=== PATIENT | female | born 1975 | race Two or more races ===

== ENCOUNTER 2016-05-24 13:54 | Emergency (ER) | payer MEDICAID ==
[~2016-05-24] VITALS: Ht 167.6 cm; Wt 72.0 kg
[~2016-05-24 13:54] MED LIST: ALPR1TAB2 PO; CONSTIPATION MED; LEVO137T2 PO; LINA290C PO; MECL25TA4 PO; MIDO2.5T PO; ONDA-39 PO; OXYC-229 PO; OXYC10TA6 PO; SERT100T PO; SERT100T5 PO; ZOLP10TA5 PO
[2016-05-24] MEDS ORDERED: SODIUM CHLORIDE FLUSH 10ML SYR IVF ONE (14:30)
[2016-05-24] MEDS ORDERED: SODIUM CHLORIDE 0.9% 1,000ML IVBOLUS ONE (14:30)
[2016-05-24 15:02] LABS: HEMOGLOBIN 12.2 g/dL (11.7-16.4)
[2016-05-24 15:11] LABS: BLOOD UREA NITROGEN 11 mg/dL (7-18)
[2016-05-24 15:21] VITALS: BP 129/77
[2016-05-24] MEDS ORDERED: OXYcodone/APAP 5/325MG TABLET PO ONE (15:30)
[2016-05-24] MEDS ORDERED: OXYcodone/APAP 5/325MG TABLET ONE (15:32)
== END 2016-05-24 16:22 | disposition home or self-care (01) ==
LOC: ED 14:07
DX: R56.9 Unspecified convulsions (principal); E03.9 Hypothyroidism, unspecified; Z90.49 Acquired absence of other specified parts of digestive tract
CPT/HCPCS: 36415; 70450; 80048; 82040; 85025; 85610; 85730; 93005; 96360; 99285; J7030

== ENCOUNTER 2016-09-16 20:36 | Emergency (ER) | payer MEDICAID ==
[~2016-09-16] VITALS: Ht 167.6 cm; Wt 76.4 kg
[2016-09-16] MEDS ORDERED: HYDROmorphone 1 MG/ML, 1ML ONE ×2 (21:22→22:05)
[2016-09-16] MEDS ORDERED: ONDANSETRON 2MG/ML, 2ML ONE (21:23)
[2016-09-16] MEDS ORDERED: ONDANSETRON 2MG/ML, 2ML IVPush ONE (21:30)
[2016-09-16] MEDS ORDERED: SODIUM CHLORIDE 0.9% 1,000ML IVBOLUS ONE (21:30)
[2016-09-16] MEDS ORDERED: SODIUM CHLORIDE FLUSH 10ML SYR IVF ONE (21:30)
[2016-09-16] MEDS: HYDROmorphone 1 MG/ML, 1ML IVPush PRN ×2 (21:37→22:30)
[2016-09-16 21:38] LABS: ASPARTATE AMINO TRANSFERASE 16 U/L (15-37); BLOOD UREA NITROGEN 12 mg/dL (7-18)
[2016-09-16 21:43] LABS: IS PT STATUS REG ER OR PRE ER? YES
[2016-09-16] MEDS ORDERED: OMNIPAQUE 350 MG/ML, 100ML BOTTLE ONE (23:52)
[2016-09-16 23:53] VITALS: BP 128/95
== END 2016-09-17 00:41 | disposition home or self-care (01) ==
LOC: ED 23:35
DX: E86.0 Dehydration (principal); M54.6 Pain in thoracic spine; R11.2 Nausea with vomiting, unspecified; E03.9 Hypothyroidism, unspecified; Z87.442 Personal history of urinary calculi; Z90.49 Acquired absence of other specified parts of digestive tract; Z87.891 Personal history of nicotine dependence; Z88.8 Allergy status to other drugs, medicaments and biological substances
CPT/HCPCS: 36415; 71010; 71275; 74176; 80053; 81001; 83690; 84484; 84703; 85025; 93005; 96374; 96375; 96376; 99285; J1170; J2405; J7030; Q9967

== ENCOUNTER 2016-10-10 22:29 | Emergency (ER) | payer MEDICAID ==
[~2016-10-10] VITALS: Ht 167.6 cm; Wt 77.7 kg
[~2016-10-10 22:29] MED LIST changes: -ONDA-39 PO; +ONDA4TAB12 PO; -OXYC-229 PO; +OXYC-307 PO
[2016-10-10] MEDS ORDERED: ALPR2TAB2 PO (23:19)
[2016-10-10] MEDS ORDERED: LEVO175T2 PO (23:19)
[2016-10-10] MEDS ORDERED: OXYC1TAB9 PO (23:19)
[2016-10-10] MEDS ORDERED: SODIUM CHLORIDE FLUSH 10ML SYR IVF ONE (23:30)
[2016-10-10] MEDS ORDERED: FAMOTIDINE 20 MG/2 ML IVP ONE (23:30)
[2016-10-10] MEDS ORDERED: ONDANSETRON 2MG/ML, 2ML IVPush ONE (23:30)
[2016-10-10] MEDS ORDERED: SODIUM CHLORIDE 0.9% 1,000ML IVBOLUS ONE (23:30)
[2016-10-10 23:48] LABS: HEMATOCRIT 35.2 % (34.6-47.8); HEMOGLOBIN 11.8 g/dL (11.7-16.4); WHITE BLOOD COUNT 5.9 x10^3/uL (3.4-10)
[2016-10-10 23:51] LABS: ASPARTATE AMINO TRANSFERASE 15 U/L (15-37); BLOOD UREA NITROGEN 10 mg/dL (7-18)
[2016-10-11] MEDS ORDERED: FAMOTIDINE 20 MG/2 ML ONE (00:16)
[2016-10-11] MEDS ORDERED: ONDANSETRON 2MG/ML, 2ML ONE (00:16)
[2016-10-11 01:17] VITALS: BP 116/85
== END 2016-10-11 01:18 | disposition home or self-care (01) ==
LOC: ED 23:28
DX: R10.84 Generalized abdominal pain (principal); R11.2 Nausea with vomiting, unspecified; E03.9 Hypothyroidism, unspecified; Z90.49 Acquired absence of other specified parts of digestive tract
CPT/HCPCS: 36415; 74020; 80053; 81001; 83690; 85025; 87086; 96361; 96374; 96375; 99285; J2405; J7030; S0028

== ENCOUNTER 2016-10-22 17:33 | Emergency (ER) | payer MEDICAID ==
[~2016-10-22] VITALS: Ht 167.6 cm; Wt 81.0 kg
[~2016-10-22 17:33] MED LIST changes: +ALPR2TAB2 PO; +LEVO175T2 PO; +OXYC1TAB9 PO
[2016-10-22] MEDS ORDERED: ONDANSETRON 2MG/ML, 2ML ONE (17:46)
[2016-10-22] MEDS ORDERED: SODIUM CHLORIDE 0.9% 1,000ML IVBOLUS ONE (18:00)
[2016-10-22] MEDS ORDERED: DIPHENHYDRAMINE 50 MG/ML, 1ML IVPush ONE (18:00)
[2016-10-22] MEDS ORDERED: METOCLOPRAMIDE 5 MG/ML, 2ML IVPush ONE (18:00)
[2016-10-22] MEDS ORDERED: morphine SULFATE 10 MG/ML, 1ML IVPush ONE (18:00)
[2016-10-22] MEDS ORDERED: ONDANSETRON 2MG/ML, 2ML IVPush ONE (18:00)
[2016-10-22] MEDS ORDERED: SODIUM CHLORIDE FLUSH 10ML SYR IVF ONE (18:00)
[2016-10-22] MEDS ORDERED: DIPHENHYDRAMINE 50 MG/ML, 1ML ONE (18:05)
[2016-10-22] MEDS ORDERED: METOCLOPRAMIDE 5 MG/ML, 2ML ONE (18:05)
[2016-10-22] MEDS ORDERED: MORPHINE SULFATE 4 MG/ML, 1ML ONE (18:05)
[2016-10-22 19:09] LABS: HEMATOCRIT 36.7 % (34.6-47.8); HEMOGLOBIN 12.7 g/dL (11.7-16.4); WHITE BLOOD COUNT 4.3 x10^3/uL (3.4-10)
[2016-10-22 19:23] LABS: BLOOD UREA NITROGEN 5 mg/dL (7-18)
[2016-10-22 19:24] LABS: ASPARTATE AMINO TRANSFERASE 64 U/L (15-37)
[2016-10-22 20:03] VITALS: BP 110/75
== END 2016-10-22 21:03 | disposition home or self-care (01) ==
LOC: ED 18:55
DX: R10.84 Generalized abdominal pain (principal); R11.2 Nausea with vomiting, unspecified; R53.1 Weakness
CPT/HCPCS: 36415; 74176; 80053; 81001; 83690; 84703; 85025; 87086; 96361; 96374; 96375; 99285; J1200; J2270; J2765; J7030; 87147

== ENCOUNTER 2016-10-23 12:47 | Inpatient (IN) | payer MEDICAID ==
[~2016-10-23] VITALS: Ht 167.6 cm; Wt 81.3 kg
[2016-10-23] MEDS ORDERED: SODIUM CHLORIDE 0.9% 1,000 ML IV ONE (13:36)
[2016-10-23] MEDS ORDERED: ACETAMINOPHEN 500 MG TABLET ONE (13:40)
[2016-10-23] MEDS ORDERED: HYDROmorphone 1 MG/ML, 1ML ONE ×3 (13:47→17:35)
[2016-10-23] MEDS ORDERED: ONDANSETRON 2MG/ML, 2ML ONE ×2 (13:47→15:22)
[2016-10-23] MEDS: HYDROmorphone 1 MG/ML, 1ML IVPush PRN ×2 (13:49→15:13)
[2016-10-23] MEDS ORDERED: ACETAMINOPHEN 500 MG TABLET PO ONE (14:00)
[2016-10-23] MEDS ORDERED: SODIUM CHLORIDE 0.9% 1,000ML IVBOLUS ONE (14:00)
[2016-10-23] MEDS ORDERED: ACETAMINOPHEN 325 MG TABLET PO ONE (14:00)
[2016-10-23] MEDS ORDERED: SODIUM CHLORIDE FLUSH 10ML SYR IVF ONE (14:00)
[2016-10-23] MEDS ORDERED: ONDANSETRON 2MG/ML, 2ML IVPush ONE (14:00)
[2016-10-23 14:15] LABS: HEMATOCRIT 37.1 % (34.6-47.8); WHITE BLOOD COUNT 9.6 x10^3/uL (3.4-10)
[2016-10-23 14:25] LABS: BLOOD UREA NITROGEN 6 mg/dL (7-18)
[2016-10-23] MEDS ORDERED: IBUPROFEN 200 MG TABLET ONE (14:31)
[2016-10-23] MEDS ORDERED: IBUPROFEN 200 MG TABLET PO ONE (15:00)
[2016-10-23] MEDS ORDERED: MORPHINE SULFATE 4 MG/ML, 1ML ONE (15:22)
[2016-10-23] MEDS ORDERED: LEVOFLOXACIN/PMX 750MG/150ML 150 ML ONE (15:22)
[2016-10-23] MEDS ORDERED: LEVOFLOXACIN/PMX 750MG/150ML 150 ML IVPB ONE (15:30)
[2016-10-23 15:33] LABS: ASPARTATE AMINO TRANSFERASE 46 U/L (15-37)
[2016-10-23] MEDS ORDERED: SODIUM CHLORIDE 0.9%, 500ML IVBOLUS ONE (17:30)
[2016-10-23] MEDS ORDERED: LEVOTHYROXINE 100 MCG INJ IVPush ONE (17:30)
[2016-10-23] MEDS ORDERED: BISACODYL 10 MG SUPP PR PRN (17:30)
[2016-10-23] MEDS ORDERED: GUAIFENESIN/DM 200-20MG, 10ML UDC PO PRN (17:30)
[2016-10-23] MEDS ORDERED: DOCUSATE 100 MG CAPSULE PO PRN (17:30)
[2016-10-23] MEDS ORDERED: ACETAMINOPHEN 325 MG TABLET PO PRN (17:30)
[2016-10-23] MEDS ORDERED: PROMETHAZINE 25 MG/ML, 1ML IM PRN (17:30)
[2016-10-23] MEDS ORDERED: POLYETHYLENE GLYCOL 17 GM PACKET PO PRN (17:30)
[2016-10-23] MEDS ORDERED: METOCLOPRAMIDE 5 MG/ML, 2ML IVPush PRN (17:30)
[2016-10-23 17:51] VITALS: BP 121/74
[2016-10-23 18:02] LABS: IS PT STATUS REG ER OR PRE ER? NO
[2016-10-23] MEDS: SODIUM CHLORIDE 0.9% 1,000 ML IV SCH (19:48)
[2016-10-23] MEDS: CEFTRIAXONE PMX 1GM/50ML 50 ML IV SCH (19:48)
[2016-10-23] MEDS: LACTOBACILLUS CHEW TABLET PO SCH (19:49)
[2016-10-23] MEDS: OXYcodone/APAP 10/325MG TABLET PO PRN (19:49)
[2016-10-23] MEDS: ONDANSETRON 2MG/ML, 2ML IVPush PRN (19:50)
[2016-10-23] MEDS: ENOXAPARIN 40 MG/0.4 ML SQ SCH (19:52)
[2016-10-23] MEDS: DOXYCYCLINE 100 MG in DEXTROSE 5% 250 ML IV SCH (20:55)
[2016-10-23] MEDS: ALPRazolam 1MG TABLET PO PRN (21:56)
[2016-10-24 00:01] LABS: IS PT STATUS REG ER OR PRE ER? NO
[2016-10-24 00:45] VITALS: BP 116/80
[2016-10-24 02:14] VITALS: BP 107/73
[2016-10-24] MEDS: ONDANSETRON 2MG/ML, 2ML IVPush PRN (02:56)
[2016-10-24] MEDS: SODIUM CHLORIDE 0.9% 1,000 ML IV SCH ×3 (05:00→22:40)
[2016-10-24] MEDS: LEVOTHYROXINE 175 MCG TABLET PO SCH (05:00)
[2016-10-24 05:57] LABS: HEMATOCRIT 29.3 % (34.6-47.8); WHITE BLOOD COUNT 10.1 x10^3/uL (3.4-10)
[2016-10-24 06:48] LABS: ASPARTATE AMINO TRANSFERASE 82 U/L (15-37); BLOOD UREA NITROGEN 6 mg/dL (7-18)
[2016-10-24 06:58] VITALS: BP 115/82
[2016-10-24] MEDS: TEMPLATE NON-FORMULARY MED. (Linaclotide** (Linzess**) 290 MCG) PO SCH (09:00)
[2016-10-24] MEDS: SENNA/DOCUSATE TABLET PO SCH (09:10)
[2016-10-24] MEDS: OXYcodone/APAP 10/325MG TABLET PO PRN ×2 (09:10→18:00)
[2016-10-24] MEDS: LACTOBACILLUS CHEW TABLET PO SCH ×3 (09:10→20:25)
[2016-10-24] MEDS: DOXYCYCLINE 100 MG in DEXTROSE 5% 250 ML IV SCH ×2 (09:11→20:25)
[2016-10-24 13:15] VITALS: BP 113/83
[2016-10-24] MEDS: ALPRazolam 1MG TABLET PO PRN (15:18)
[2016-10-24] MEDS ORDERED: LEVOTHYROXINE 100 MCG INJ IVPush ONE (16:30)
[2016-10-24] MEDS: CEFTRIAXONE PMX 1GM/50ML 50 ML IV SCH (19:33)
[2016-10-24] MEDS: ENOXAPARIN 40 MG/0.4 ML SQ SCH (20:25)
[2016-10-24 21:01] VITALS: BP 121/79
[2016-10-25 01:05] VITALS: BP 126/87
[2016-10-25] MEDS: SODIUM CHLORIDE 0.9% 1,000 ML IV SCH ×3 (05:20→20:21)
[2016-10-25 05:50] LABS: HEMATOCRIT 32.4 % (34.6-47.8); WHITE BLOOD COUNT 8.2 x10^3/uL (3.4-10)
[2016-10-25] MEDS: LEVOTHYROXINE 175 MCG TABLET PO SCH (05:56)
[2016-10-25 05:59] LABS: BLOOD UREA NITROGEN 2 mg/dL (7-18)
[2016-10-25 06:55] VITALS: BP 123/73
[2016-10-25] MEDS: TEMPLATE NON-FORMULARY MED. (Linaclotide** (Linzess**) 290 MCG) PO SCH (08:56)
[2016-10-25] MEDS: LACTOBACILLUS CHEW TABLET PO SCH ×3 (08:56→20:20)
[2016-10-25] MEDS: OXYcodone/APAP 10/325MG TABLET PO PRN ×2 (08:56→20:20)
[2016-10-25] MEDS: SENNA/DOCUSATE TABLET PO SCH (08:56)
[2016-10-25] MEDS: DOXYCYCLINE 100 MG in DEXTROSE 5% 250 ML IV SCH ×2 (09:12→22:12)
[2016-10-25 13:00] VITALS: BP_SYST 108; BP_SYST 120; BP_DIAS 67; BP_DIAS 73
[2016-10-25] MEDS: ALPRazolam 1MG TABLET PO PRN (15:00)
[2016-10-25] MEDS ORDERED: LEVOTHYROXINE 100 MCG INJ IVPush ONE (18:00)
[2016-10-25 19:21] VITALS: BP 114/78
[2016-10-25] MEDS: ENOXAPARIN 40 MG/0.4 ML SQ SCH (20:20)
[2016-10-25] MEDS: CEFTRIAXONE PMX 1GM/50ML 50 ML IV SCH (20:21)
[2016-10-26] MEDS ORDERED: CALCIUM CARBONATE 500 MG TAB.CHEW PO PRN (01:00)
[2016-10-26 01:16] VITALS: BP 132/95
[2016-10-26] MEDS: SODIUM CHLORIDE 0.9% 1,000 ML IV SCH ×2 (02:09→10:21)
[2016-10-26 05:26] LABS: HEMATOCRIT 27.9 % (34.6-47.8); HEMOGLOBIN 9.7 g/dL (11.7-16.4); WHITE BLOOD COUNT 4.7 x10^3/uL (3.4-10)
[2016-10-26] MEDS: LEVOTHYROXINE 175 MCG TABLET PO SCH (05:56)
[2016-10-26 06:11] LABS: BLOOD UREA NITROGEN 3 mg/dL (7-18)
[2016-10-26 06:54] VITALS: BP 119/75
[2016-10-26] MEDS: TEMPLATE NON-FORMULARY MED. (Linaclotide** (Linzess**) 290 MCG) PO SCH (09:00)
[2016-10-26] MEDS: DOXYCYCLINE 100 MG in DEXTROSE 5% 250 ML IV SCH (10:21)
[2016-10-26] MEDS: LACTOBACILLUS CHEW TABLET PO SCH ×2 (10:21→16:36)
[2016-10-26] MEDS: SENNA/DOCUSATE TABLET PO SCH (10:22)
[2016-10-26 13:48] VITALS: BP 117/81
[2016-10-26] MEDS: OXYcodone/APAP 10/325MG TABLET PO PRN (14:19)
[2016-10-26] MEDS ORDERED: LEVO100T PO (16:22)
[2016-10-26] MEDS ORDERED: ACID1TAB7 PO (16:22)
[2016-10-26] MEDS ORDERED: DOXY100C2 PO (16:22)
[2016-10-26] MEDS ORDERED: CEFD300C37 PO (16:22)
[2016-10-27] MEDS ORDERED: OXYC1TAB9 PO (15:06)
[2016-10-29] MEDS ORDERED: ALBU90AE INH (17:29)
== END 2016-10-26 17:21 | disposition home or self-care (01) | DRG 871 ==
LOC: ED 14:09 → EDIP 15:48 → 3NE 17:48 → 4WST 10-24 00:38
PROVIDERS: ADMIT Hospitalist; ATTEND Internal Medicine
DX: A41.9 Sepsis, unspecified organism (principal); J18.9 Pneumonia, unspecified organism; F11.20 Opioid dependence, uncomplicated; E03.9 Hypothyroidism, unspecified; E87.6 Hypokalemia; G40.909 Epilepsy, unspecified, not intractable, without status epilepticus; G89.29 Other chronic pain; K58.0 Irritable bowel syndrome with diarrhea; K59.09 Other constipation; R65.20 Severe sepsis without septic shock; Z87.442 Personal history of urinary calculi; Z90.49 Acquired absence of other specified parts of digestive tract; Z98.51 Tubal ligation status
CPT/HCPCS: 36415; 71010; 74177; 80048; 80053; 80061; 81003; 83605; 84145; 84439; 84443; 84484; 84703; 85025; 87040; 87205; 89055; 93005; 93306; 96361; 96365; 96366; 96375; 96376; J0696; J1170; J1650; J1956; J2405; J7060; J7030

== ENCOUNTER 2016-11-03 14:00 | Emergency (ER) | payer MEDICAID ==
[~2016-11-03] VITALS: Ht 167.6 cm; Wt 77.0 kg
[~2016-11-03 14:00] MED LIST changes: +ACID1TAB7 PO; +ALBU90AE INH; +CEFD300C37 PO; +DOXY100C2 PO; +LEVO100T PO
[2016-11-03 15:06] LABS: BLOOD UREA NITROGEN 9 mg/dL (7-18)
[2016-11-03 15:08] LABS: HEMATOCRIT 35.3 % (34.6-47.8); HEMOGLOBIN 12.1 g/dL (11.7-16.4); WHITE BLOOD COUNT 5.8 x10^3/uL (3.4-10)
[2016-11-03 15:53] VITALS: BP 123/83
[2016-11-03] MEDS ORDERED: BENZONATATE 100 MG CAPSULE PO SCH (16:00)
== END 2016-11-03 16:44 | disposition home or self-care (01) ==
LOC: ED 15:02
DX: R06.00 Dyspnea, unspecified (principal); E03.9 Hypothyroidism, unspecified; Z90.49 Acquired absence of other specified parts of digestive tract; Z88.8 Allergy status to other drugs, medicaments and biological substances
CPT/HCPCS: 36415; 71010; 80048; 82040; 84443; 85025; 93005; 99285

== ENCOUNTER 2016-11-21 11:16 | Emergency (ER) | payer MEDICAID ==
[~2016-11-21] VITALS: Ht 167.6 cm; Wt 79.5 kg
[2016-11-21] MEDS ORDERED: SODIUM CHLORIDE FLUSH 10ML SYR IVF ONE (12:00)
[2016-11-21] MEDS ORDERED: SODIUM CHLORIDE 0.9% 1,000ML IVBOLUS ONE ×2 (12:00→14:30)
[2016-11-21 12:18] LABS: HEMATOCRIT 36.4 % (34.6-47.8); HEMOGLOBIN 12.4 g/dL (11.7-16.4); WHITE BLOOD COUNT 8.8 x10^3/uL (3.4-10)
[2016-11-21 12:30] LABS: BLOOD UREA NITROGEN 6 mg/dL (7-18)
[2016-11-21 14:11] LABS: ASPARTATE AMINO TRANSFERASE 245 U/L (15-37)
[2016-11-21] MEDS ORDERED: OMNIPAQUE 350 MG/ML, 100ML BOTTLE ONE (14:14)
[2016-11-21 14:15] LABS: ACETAMINOPHEN < 2 mcg/mL (10-30)
[2016-11-21 15:13] LABS: DAU SCREEN DISCLAIMER
[2016-11-21 15:27] VITALS: BP 136/82
[2016-11-21] MEDS ORDERED: CEFTRIAXONE PMX 1GM/50ML 50 ML ONE (16:15)
[2016-11-21] MEDS ORDERED: ONDANSETRON ODT 4 MG PO PRN (16:30)
[2016-11-21] MEDS ORDERED: ENOXAPARIN 30 MG/0.3 ML SQ SCH (16:30)
[2016-11-21] MEDS ORDERED: CEFTRIAXONE PMX 1GM/50ML 50 ML IVPB ONE (16:30)
[2016-11-21] MEDS ORDERED: SODIUM CHLORIDE 0.9% 1,000 ML IV SCH (16:30)
[2016-11-21] MEDS ORDERED: ONDANSETRON 2MG/ML, 2ML IVPush PRN (16:30)
[2016-11-21] MEDS ORDERED: SODIUM CHLORIDE 0.9% 1,000 ML IV ONE (16:32)
[2016-11-21] MEDS ORDERED: SODIUM CHLORIDE FLUSH 10ML SYR IVF PRN (17:00)
[2016-11-21] MEDS ORDERED: ALPRazolam 1MG TABLET PO PRN (17:00)
[2016-11-21] MEDS ORDERED: POTASSIUM CHLORIDE 20 MEQ TAB.ER.PRT PO SCH (17:00)
[2016-11-21] MEDS ORDERED: LACTOBACILLUS CHEW TABLET PO SCH (21:00)
[2016-11-22] MEDS ORDERED: LEVOTHYROXINE 100 MCG TABLET PO SCH (06:00)
[2016-11-22] MEDS ORDERED: TEMPLATE NON-FORMULARY MED. (Linaclotide** (Linzess**) 290 MCG) HOMEMEDPO SCH (09:00)
== END 2016-11-21 17:22 | disposition left against medical advice (07) ==
LOC: ED 14:31 → EDIP 16:32 → UNDOADMIN 16:32 → UNDODISIN 16:33 → ED 17:22
DX: R00.0 Tachycardia, unspecified (principal); R50.9 Fever, unspecified; E03.9 Hypothyroidism, unspecified
CPT/HCPCS: 36415; 71010; 71275; 76700; 80048; 80076; 80307; 80329; 81001; 82040; 83605; 84145; 84439; 84443; 85025; 87040; 93005; 96360; 96361; 99285; J7030; Q9967; G0479; G0480

== ENCOUNTER 2017-01-19 17:18 | Emergency (ER) | payer MEDICAID ==
[~2017-01-19] VITALS: Ht 162.6 cm; Wt 76.6 kg
[2017-01-19] MEDS ORDERED: DIVA500T2 PO (17:43)
[2017-01-19] MEDS ORDERED: OXYC15TA PO (17:43)
[2017-01-19] MEDS ORDERED: SERT25TA PO (17:43)
[2017-01-19 20:13] VITALS: BP 106/63
== END 2017-01-19 20:17 | disposition home or self-care (01) ==
LOC: ED 17:41
DX: S09.90XA Unspecified injury of head, initial encounter (principal); E03.9 Hypothyroidism, unspecified; W19.XXXA Unspecified fall, initial encounter; Y93.89 Activity, other specified; Y92.89 Other specified places as the place of occurrence of the external cause; Y99.8 Other external cause status
CPT/HCPCS: 70450; 93005; 99284

== ENCOUNTER 2017-01-21 23:48 | Emergency (ER) | payer MEDICAID ==
[~2017-01-21] VITALS: Ht 162.6 cm; Wt 78.3 kg
[~2017-01-21 23:48] MED LIST changes: +DIVA500T2 PO; +OXYC15TA PO; +SERT25TA PO
[2017-01-22] MEDS ORDERED: SODIUM CHLORIDE FLUSH 10ML SYR IVF ONE (00:30)
[2017-01-22] MEDS ORDERED: SODIUM CHLORIDE 0.9% 1,000ML IVBOLUS ONE (00:30)
[2017-01-22 01:01] LABS: BLOOD UREA NITROGEN 16 mg/dL (7-18)
[2017-01-22] MEDS ORDERED: POTASSIUM CHLORIDE 20 MEQ TAB.ER.PRT ONE (01:11)
[2017-01-22] MEDS ORDERED: POTASSIUM CHLORIDE 20 MEQ TAB.ER.PRT PO ONE (01:30)
[2017-01-22] MEDS ORDERED: POTASSIUM CHLORIDE 40 MEQ in SODIUM CHLORIDE 0.9% 500 ML IV ONE (01:30)
[2017-01-22 03:41] LABS: BLOOD UREA NITROGEN 14 mg/dL (7-18)
[2017-01-22 05:02] VITALS: BP 109/74
== END 2017-01-22 05:13 | disposition home or self-care (01) ==
LOC: ED 23:59
DX: E03.9 Hypothyroidism, unspecified (principal); G89.29 Other chronic pain; M54.9 Dorsalgia, unspecified; Z90.49 Acquired absence of other specified parts of digestive tract; R53.1 Weakness; E87.6 Hypokalemia
CPT/HCPCS: 36415; 80048; 82040; 84439; 84443; 93005; 96360; 99285; J7030

== ENCOUNTER 2017-02-14 13:45 | Emergency (ER) | payer MEDICAID ==
[~2017-02-14] VITALS: Ht 162.6 cm; Wt 74.7 kg
[2017-02-14 14:49] LABS: BASOPHILS # (AUTO) 0.06 x10^3/uL (0-0.1); BASOPHILS % (AUTO) 1 % (0-1); EOSINOPHILS # (AUTO) 0.51 x10^3/uL (0-0.4); EOSINOPHILS % (AUTO) 7 % (1-7); LYMPHOCYTES # (AUTO) 2.14 x10^3/uL (1-3.4); LYMPHOCYTES % (AUTO) 29 % (22-44); MD NO; MEAN CORPUSCULAR HEMOGLOBIN 30.2 pg (27.0-34.8); MEAN CORPUSCULAR VOLUME 88.7 fL (80-100); MEAN PLATELET VOLUME 7.6 fL (7.4-10.4); MONOCYTES # (AUTO) 0.39 x10^3/uL (0.2-0.8); MONOCYTES % (AUTO) 5 % (2-9); NEUTROPHILS # (AUTO) 4.19 x10^3/uL (1.8-6.8); NEUTROPHILS % (AUTO) 58 % (42-75); PLATELET COUNT 426 x10^3/uL (130-400); RED BLOOD COUNT 4.63 x10^6/uL (3.82-5.3); RED CELL DISTRIBUTION WIDTH 16.7 % (9.6-15.2)
[2017-02-14] MEDS ORDERED: LEVO137T3 PO (14:57)
[2017-02-14 15:01] LABS: ALBUMIN 4.2 g/dL (3.4-5.0); ANION GAP 6 mmol/L (5-15); CHLORIDE 100 mmol/L (98-107); CREATININE 1.12 mg/dL (0.55-1.02)
[2017-02-14 15:05] LABS: FREE T4 (FREE THYROXINE) 0.95 ng/dL (0.76-1.46); TROPONIN I < 0.015 ng/mL (0.000-0.045)
[2017-02-14 15:31] LABS: HCG UR SG 1.022 (1.003-1.030); MICROSCOPIC NOT IND
[2017-02-14 15:37] LABS: CULTURE INDICATED? NO
[2017-02-14] MEDS ORDERED: METOPROLOL TARTRATE 50 MG TABLET PO ONE (16:16)
[2017-02-14] MEDS ORDERED: METOPROLOL TARTRATE 50 MG TABLET ONE (16:29)
[2017-02-14 16:41] VITALS: BP 106/70
== END 2017-02-14 17:05 | disposition home or self-care (01) ==
LOC: ED 14:47
DX: R00.2 Palpitations (principal); E03.9 Hypothyroidism, unspecified; G89.29 Other chronic pain
CPT/HCPCS: 36415; 71010; 80048; 81003; 81025; 82040; 84439; 84443; 84484; 85025; 93005; 99285

== ENCOUNTER 2017-02-16 10:17 | Emergency (ER) | payer MEDICAID ==
[~2017-02-16] VITALS: Ht 162.6 cm; Wt 72.1 kg
[~2017-02-16 10:17] MED LIST changes: +LEVO137T3 PO
[2017-02-16] MEDS ORDERED: NALOXONE 1 MG/ML, 2ML ONE (10:28)
[2017-02-16] MEDS ORDERED: SODIUM CHLORIDE 0.9% 1,000ML IVBOLUS ONE (10:30)
[2017-02-16] MEDS ORDERED: NALOXONE 1 MG/ML, 2ML IVPush ONE (10:30)
[2017-02-16] MEDS ORDERED: SODIUM CHLORIDE 0.9% 1,000 ML IV ONE (10:30)
[2017-02-16] MEDS ORDERED: NALOXONE 0.4 MG/ML, 1ML IVPush PRN (10:30)
[2017-02-16 11:12] LABS: MICROSCOPIC NOT IND
[2017-02-16 11:16] LABS: CULTURE INDICATED? NO
[2017-02-16 11:41] LABS: BASOPHILS # (AUTO) 0.06 x10^3/uL (0-0.1); BASOPHILS % (AUTO) 1 % (0-1); EOSINOPHILS # (AUTO) 0.33 x10^3/uL (0-0.4); EOSINOPHILS % (AUTO) 6 % (1-7); LYMPHOCYTES % (AUTO) 31 % (22-44); MD NO; MEAN CORPUSCULAR HEMOGLOBIN 30.2 pg (27.0-34.8); MEAN CORPUSCULAR HGB CONC 33.7 g/dL (32.4-35.8); MEAN CORPUSCULAR VOLUME 89.6 fL (80-100); MEAN PLATELET VOLUME 7.7 fL (7.4-10.4); MONOCYTES # (AUTO) 0.42 x10^3/uL (0.2-0.8); MONOCYTES % (AUTO) 8 % (2-9); NEUTROPHILS % (AUTO) 54 % (42-75); PLATELET COUNT 326 x10^3/uL (130-400); RED CELL DISTRIBUTION WIDTH 16.8 % (9.6-15.2)
[2017-02-16 11:51] LABS: ALBUMIN 3.5 g/dL (3.4-5.0); ANION GAP 8 mmol/L (5-15); CALCIUM 7.7 mg/dL (8.5-10.1); CHLORIDE 104 mmol/L (98-107); CREATININE 0.88 mg/dL (0.55-1.02)
[2017-02-16 12:46] VITALS: BP 114/65
[2017-02-28] MEDS ORDERED: METO25TA35 PO (23:07)
== END 2017-02-16 14:13 | disposition home or self-care (01) ==
LOC: ED 13:25
DX: T40.2X1A Poisoning by other opioids, accidental (unintentional), initial encounter (principal); R41.0 Disorientation, unspecified; R40.1 Stupor; R33.9 Retention of urine, unspecified; G89.29 Other chronic pain; E03.9 Hypothyroidism, unspecified; Y92.89 Other specified places as the place of occurrence of the external cause; Z91.048 Other nonmedicinal substance allergy status
CPT/HCPCS: 36415; 51702; 71010; 80048; 81003; 82040; 85025; 93005; 96361; 96374; 99285; J2310; J7030

== ENCOUNTER 2017-03-17 17:39 | Emergency (ER) | payer MEDICAID ==
[~2017-03-17] VITALS: Ht 162.6 cm; Wt 75.9 kg
[~2017-03-17 17:39] MED LIST changes: +METO25TA35 PO; -SERT100T PO; +SERT20OR PO
[2017-03-17 18:33] LABS: RAPID INFLUENZA A Negative (Negative); RAPID INFLUENZA B Negative (Negative)
[2017-03-17] MEDS ORDERED: KETOROLAC 30 MG/1 ML ONE (18:58)
[2017-03-17] MEDS ORDERED: SODIUM CHLORIDE 0.9% 1,000ML IV ONE (19:00)
[2017-03-17] MEDS ORDERED: KETOROLAC 30 MG/1 ML IVPush ONE (19:00)
[2017-03-17 19:28] LABS: ALANINE AMINOTRANSFERASE 12 U/L (12-78); ALBUMIN 3.9 g/dL (3.4-5.0); ANION GAP 8 mmol/L (5-15); CALCIUM 8.5 mg/dL (8.5-10.1); CHLORIDE 110 mmol/L (98-107); CREATININE 0.75 mg/dL (0.55-1.02)
[2017-03-17 19:30] LABS: ALKALINE PHOSPHATASE 79 U/L (45-117); BILIRUBIN,TOTAL 0.6 mg/dL (0.2-1.0); TOTAL PROTEIN 8.1 g/dL (6.4-8.2)
[2017-03-17] MEDS ORDERED: DIPHENHYDRAMINE 50 MG/ML, 1ML ONE (19:39)
[2017-03-17 19:48] LABS: MEAN CORPUSCULAR HEMOGLOBIN 29.7 pg (27.0-34.8); MEAN CORPUSCULAR HGB CONC 33.2 g/dL (32.4-35.8); MEAN CORPUSCULAR VOLUME 89.5 fL (80-100); MEAN PLATELET VOLUME 8.3 fL (7.4-10.4); PLATELET COUNT 342 x10^3/uL (130-400); RED BLOOD COUNT 4.06 x10^6/uL (3.82-5.3); RED CELL DISTRIBUTION WIDTH 19.1 % (9.6-15.2)
[2017-03-17 19:55] LABS: HEMOGRAM NOTE RECHECKED
[2017-03-17] MEDS ORDERED: DIPHENHYDRAMINE 50 MG/ML, 1ML IVPush ONE (20:00)
[2017-03-17 20:23] LABS: BASOPHILS # (AUTO) 0.02 x10^3/uL (0-0.1); BASOPHILS % (AUTO) 0 % (0-1); EOSINOPHILS # (AUTO) 0.05 x10^3/uL (0-0.4); EOSINOPHILS % (AUTO) 1 % (1-7); LYMPHOCYTES % (AUTO) 26 % (22-44); MD SCAN; MONOCYTES # (AUTO) 0.37 x10^3/uL (0.2-0.8); MONOCYTES % (AUTO) 5 % (2-9); NEUTROPHILS # (AUTO) 4.65 x10^3/uL (1.8-6.8); NEUTROPHILS % (AUTO) 68 % (42-75)
[2017-03-17 20:33] VITALS: BP 124/89
== END 2017-03-17 20:41 | disposition home or self-care (01) ==
LOC: ED 18:56
DX: B34.9 Viral infection, unspecified (principal); E03.9 Hypothyroidism, unspecified; Z90.49 Acquired absence of other specified parts of digestive tract
CPT/HCPCS: 36415; 80053; 85025; 87400; 96361; 96374; 96375; 99285; J1200; J1885; J7030

== ENCOUNTER 2017-04-16 16:03 | Emergency (ER) | payer MEDICAID ==
[~2017-04-16] VITALS: Ht 162.6 cm; Wt 75.5 kg
[~2017-04-16 16:03] MED LIST changes: +SERT100T PO; -SERT20OR PO
[2017-04-16 16:13] VITALS: BP 120/69
[2017-04-16] MEDS ORDERED: METOCLOPRAMIDE 5 MG/ML, 2ML IM SCH (16:30)
[2017-04-16] MEDS ORDERED: DIPHENHYDRAMINE 50 MG/ML, 1ML IM ONE (16:30)
== END 2017-04-16 19:24 | disposition left against medical advice (07) ==
LOC: ED 19:20
DX: G43.909 Migraine, unspecified, not intractable, without status migrainosus (principal)
CPT/HCPCS: 99281

== ENCOUNTER 2017-05-26 18:01 | Emergency (ER) | payer MEDICAID ==
[~2017-05-26] VITALS: Ht 167.6 cm; Wt 78.0 kg
[2017-05-26 18:03] VITALS: BP 108/73
[2017-05-26] MEDS ORDERED: FIORICET PO (18:31)
[2017-05-26] MEDS ORDERED: HYOS0.1268 PO (18:31)
[2017-05-26] MEDS ORDERED: TRAZ100T15 PO (18:31)
[2017-05-26] MEDS ORDERED: METH4TAB7 PO (18:31)
[2017-05-26] MEDS ORDERED: MIDO5TAB PO (18:31)
[2017-05-26] MEDS ORDERED: LEVE500T8 PO (18:31)
[2017-05-26] MEDS ORDERED: ATOR10TA PO (18:31)
[2017-05-26] MEDS ORDERED: PROP20TA PO (18:31)
[2017-05-26] MEDS ORDERED: PHEN37.53 PO (18:31)
[2017-05-26] MEDS ORDERED: OXYC10TA6 PO (18:31)
[2017-05-26] MEDS ORDERED: OXYC20TA2 PO (18:31)
[2017-05-26] MEDS ORDERED: SERT100T5 PO (18:31)
[2017-05-26] MEDS ORDERED: ZIPR20CA3 PO (18:31)
[2017-05-26] MEDS ORDERED: ONDA4TAB13 SL (18:31)
[2017-05-26] MEDS ORDERED: SUCR1TAB PO (18:31)
== END 2017-05-26 19:24 | disposition home or self-care (01) ==
LOC: ED 19:00
DX: M79.661 Pain in right lower leg (principal); M79.89 Other specified soft tissue disorders; E03.9 Hypothyroidism, unspecified; M25.561 Pain in right knee
CPT/HCPCS: 99284

== ENCOUNTER 2017-07-06 17:56 | Emergency (ER) | payer MEDICAID ==
[~2017-07-06] VITALS: Ht 167.6 cm; Wt 75.4 kg
[~2017-07-06 17:56] MED LIST changes: +ALBU1.25 NEB; +ATOR10TA PO; +FIORICET PO; +FLUT16SP IH; +HYOS0.1268 PO; +LEVE500T8 PO; +METH4TAB7 PO; +MIDO5TAB PO; +ONDA4TAB13 SL; +OXYC20TA2 PO; +PHEN37.53 PO; +PROP20TA PO; +SUCR1TAB PO; +SUMA50TA4 PO; +TRAZ100T15 PO; +ZIPR20CA3 PO
[2017-07-06] MEDS ORDERED: SUMA20SP2 NAS (18:30)
[2017-07-06] MEDS ORDERED: KETOROLAC 30 MG/1 ML IVPush ONE (19:00)
[2017-07-06] MEDS ORDERED: PROMETHAZINE 25 MG/ML, 1ML IM ONE (19:00)
[2017-07-06] MEDS ORDERED: DIPHENHYDRAMINE 50 MG/ML, 1ML IVPush ONE (19:00)
[2017-07-06] MEDS ORDERED: SODIUM CHLORIDE 0.9% 1,000ML IVBOLUS ONE (19:00)
[2017-07-06] MEDS ORDERED: SODIUM CHLORIDE FLUSH 10ML SYR IVF ONE (19:00)
[2017-07-06] MEDS ORDERED: DIPHENHYDRAMINE 50 MG/ML, 1ML ONE (19:04)
[2017-07-06] MEDS ORDERED: PROMETHAZINE 25 MG/ML, 1ML ONE (19:04)
[2017-07-06] MEDS ORDERED: KETOROLAC 30 MG/1 ML ONE (19:04)
[2017-07-06 19:38] VITALS: BP 107/70
== END 2017-07-06 19:59 | disposition home or self-care (01) ==
LOC: ED 18:40
DX: G43.919 Migraine, unspecified, intractable, without status migrainosus (principal)
CPT/HCPCS: 96372; 96374; 96375; 99284; J1200; J1885; J2550; J7030

== ENCOUNTER 2017-07-09 16:28 | Emergency (ER) | payer MEDICAID ==
[~2017-07-09] VITALS: Ht 167.6 cm; Wt 77.5 kg
[~2017-07-09 16:28] MED LIST changes: +SUMA20SP2 NAS
[2017-07-09] MEDS ORDERED: ONDANSETRON ODT 4 MG PO ONE (17:00)
[2017-07-09] MEDS ORDERED: SODIUM CHLORIDE FLUSH 10ML SYR IVF ONE (17:00)
[2017-07-09 17:02] LABS: BASOPHILS # (AUTO) 0.06 x10^3/uL (0-0.1); BASOPHILS % (AUTO) 1 % (0-1); EOSINOPHILS # (AUTO) 0.25 x10^3/uL (0-0.4); EOSINOPHILS % (AUTO) 4 % (1-7); LYMPHOCYTES # (AUTO) 2.75 x10^3/uL (1-3.4); LYMPHOCYTES % (AUTO) 44 % (22-44); MD NO; MEAN CORPUSCULAR HEMOGLOBIN 31.7 pg (27.0-34.8); MEAN CORPUSCULAR HGB CONC 34.4 g/dL (32.4-35.8); MEAN PLATELET VOLUME 7.9 fL (7.4-10.4); MONOCYTES # (AUTO) 0.45 x10^3/uL (0.2-0.8); MONOCYTES % (AUTO) 7 % (2-9); NEUTROPHILS # (AUTO) 2.74 x10^3/uL (1.8-6.8); NEUTROPHILS % (AUTO) 44 % (42-75); PLATELET COUNT 355 x10^3/uL (130-400); RED BLOOD COUNT 3.97 x10^6/uL (3.82-5.3); RED CELL DISTRIBUTION WIDTH 15.7 % (9.6-15.2)
[2017-07-09 17:12] LABS: ALANINE AMINOTRANSFERASE 22 U/L (12-78); ALBUMIN 3.6 g/dL (3.4-5.0); ANION GAP 6 mmol/L (5-15); CALCIUM 8.5 mg/dL (8.5-10.1); CHLORIDE 111 mmol/L (98-107); CREATININE 0.87 mg/dL (0.55-1.02)
[2017-07-09 17:14] LABS: ALKALINE PHOSPHATASE 102 U/L (45-117); BILIRUBIN,TOTAL 0.2 mg/dL (0.2-1.0); TOTAL PROTEIN 7.7 g/dL (6.4-8.2)
[2017-07-09] MEDS ORDERED: MORPHINE SULFATE 4 MG/ML, 1ML ONE ×2 (17:50→19:49)
[2017-07-09] MEDS ORDERED: ONDANSETRON ODT 4 MG ONE (17:50)
[2017-07-09] MEDS: MORPHINE SULFATE 4 MG/ML, 1ML IVPush PRN ×2 (17:56→19:51)
[2017-07-09] MEDS ORDERED: SODIUM CHLORIDE 0.9% 1,000ML IVBOLUS ONE (18:00)
[2017-07-09] MEDS ORDERED: OMNIPAQUE 350 MG/ML, 100ML BOTTLE ONE (18:08)
[2017-07-09 19:47] VITALS: BP 107/73
== END 2017-07-09 20:16 | disposition home or self-care (01) ==
LOC: ED 20:07
DX: R10.33 Periumbilical pain (principal); G89.29 Other chronic pain; G43.909 Migraine, unspecified, not intractable, without status migrainosus; G40.909 Epilepsy, unspecified, not intractable, without status epilepticus; E03.9 Hypothyroidism, unspecified; K58.9 Irritable bowel syndrome, unspecified; Z90.49 Acquired absence of other specified parts of digestive tract
CPT/HCPCS: 36415; 74021; 74177; 80053; 84703; 85025; 86850; 86900; 96374; 96376; 99285; J7030; Q0162; Q9967

== ENCOUNTER 2017-08-04 11:48 | Emergency (ER) | payer MEDICAID ==
[~2017-08-04] VITALS: Ht 167.6 cm; Wt 79.0 kg
[2017-08-04 12:22] LABS: BASOPHILS # (AUTO) 0.06 x10^3/uL (0-0.1); BASOPHILS % (AUTO) 1 % (0-1); EOSINOPHILS # (AUTO) 0.19 x10^3/uL (0-0.4); EOSINOPHILS % (AUTO) 5 % (1-7); LYMPHOCYTES % (AUTO) 41 % (22-44); MD NO; MEAN CORPUSCULAR HEMOGLOBIN 31.7 pg (27.0-34.8); MEAN CORPUSCULAR HGB CONC 34.3 g/dL (32.4-35.8); MEAN CORPUSCULAR VOLUME 92.3 fL (80-100); MEAN PLATELET VOLUME 7.6 fL (7.4-10.4); MONOCYTES # (AUTO) 0.44 x10^3/uL (0.2-0.8); MONOCYTES % (AUTO) 11 % (2-9); NEUTROPHILS # (AUTO) 1.63 x10^3/uL (1.8-6.8); NEUTROPHILS % (AUTO) 42 % (42-75); PLATELET COUNT 326 x10^3/uL (130-400); RED BLOOD COUNT 4.03 x10^6/uL (3.82-5.3); RED CELL DISTRIBUTION WIDTH 15.9 % (9.6-15.2)
[2017-08-04 12:32] LABS: ALANINE AMINOTRANSFERASE 31 U/L (12-78); ALBUMIN 3.6 g/dL (3.4-5.0); ANION GAP 6 mmol/L (5-15); CALCIUM 8.4 mg/dL (8.5-10.1); CHLORIDE 106 mmol/L (98-107); CREATININE 0.81 mg/dL (0.55-1.02)
[2017-08-04 12:37] LABS: ALKALINE PHOSPHATASE 96 U/L (45-117); BILIRUBIN,TOTAL 0.5 mg/dL (0.2-1.0)
[2017-08-04 12:48] LABS: MICROSCOPIC INDICATED
[2017-08-04 13:11] LABS: CULTURE INDICATED? YES
[2017-08-04] MEDS ORDERED: KETOROLAC 30 MG/1 ML ONE (13:38)
[2017-08-04] MEDS ORDERED: KETOROLAC 30 MG/1 ML IM ONE (14:00)
[2017-08-04 14:25] LABS: MICROSCOPIC NOT IND
[2017-08-04 14:35] LABS: CULTURE INDICATED? NO
[2017-08-04] MEDS ORDERED: BUTALB/APAP/CAFFEINE 50MG/325MG/40MG PO ONE (15:00)
[2017-08-04 15:54] VITALS: BP 105/58
== END 2017-08-04 16:21 | disposition home or self-care (01) ==
LOC: ED 16:20
DX: R10.84 Generalized abdominal pain (principal)
CPT/HCPCS: 36415; 71045; 80053; 81001; 81003; 83690; 84703; 85025; 87086; 96372; 99285; J1885

== ENCOUNTER 2017-08-07 13:22 | Emergency (ER) | payer MEDICAID ==
[~2017-08-07] VITALS: Ht 167.6 cm; Wt 77.0 kg
[~2017-08-07 13:22] MED LIST changes: +OXYC-432 PO; -OXYC1TAB9 PO
[2017-08-07 14:31] LABS: BASOPHILS # (AUTO) 0.04 x10^3/uL (0-0.1); BASOPHILS % (AUTO) 1 % (0-1); EOSINOPHILS # (AUTO) 0.18 x10^3/uL (0-0.4); EOSINOPHILS % (AUTO) 4 % (1-7); LYMPHOCYTES # (AUTO) 1.93 x10^3/uL (1-3.4); LYMPHOCYTES % (AUTO) 41 % (22-44); MD NO; MEAN CORPUSCULAR HEMOGLOBIN 31.2 pg (27.0-34.8); MEAN CORPUSCULAR HGB CONC 33.7 g/dL (32.4-35.8); MEAN CORPUSCULAR VOLUME 92.7 fL (80-100); MEAN PLATELET VOLUME 7.7 fL (7.4-10.4); MONOCYTES % (AUTO) 9 % (2-9); NEUTROPHILS # (AUTO) 2.12 x10^3/uL (1.8-6.8); NEUTROPHILS % (AUTO) 45 % (42-75); PLATELET COUNT 336 x10^3/uL (130-400); RED BLOOD COUNT 4.31 x10^6/uL (3.82-5.3); RED CELL DISTRIBUTION WIDTH 14.9 % (9.6-15.2)
[2017-08-07 14:37] LABS: ALBUMIN 4.1 g/dL (3.4-5.0); CALCIUM 9.7 mg/dL (8.5-10.1); CHLORIDE 105 mmol/L (98-107)
[2017-08-07 14:43] LABS: ALANINE AMINOTRANSFERASE 28 U/L (12-78); ALKALINE PHOSPHATASE 106 U/L (45-117); ANION GAP 6 mmol/L (5-15); CREATININE 0.95 mg/dL (0.55-1.02); TOTAL PROTEIN 8.8 g/dL (6.4-8.2)
[2017-08-07 15:20] LABS: CULTURE INDICATED? NO; HCG UR SG 1.022 (1.003-1.030); MICROSCOPIC NOT IND
[2017-08-07] MEDS ORDERED: SODIUM CHLORIDE 0.9% 1,000 ML IV ONE (15:51)
[2017-08-07] MEDS ORDERED: SODIUM CHLORIDE FLUSH 10ML SYR IVF ONE (16:00)
[2017-08-07] MEDS ORDERED: MORPHINE SULFATE 4 MG/ML, 1ML IVPush PRN (16:00)
[2017-08-07] MEDS ORDERED: ONDANSETRON 2MG/ML, 2ML IVPush ONE (16:00)
[2017-08-07] MEDS ORDERED: ONDANSETRON 2MG/ML, 2ML ONE (16:07)
[2017-08-07] MEDS ORDERED: MORPHINE SULFATE 4 MG/ML, 1ML ONE (16:08)
[2017-08-07] MEDS ORDERED: METOCLOPRAMIDE 5 MG/ML, 2ML IVPush ONE (17:30)
[2017-08-07] MEDS ORDERED: METOCLOPRAMIDE 5 MG/ML, 2ML ONE (17:31)
[2017-08-07 18:38] VITALS: BP 101/49
== END 2017-08-07 18:40 | disposition home or self-care (01) ==
LOC: ED 15:28
DX: R10.31 Right lower quadrant pain (principal); Z90.49 Acquired absence of other specified parts of digestive tract; E03.9 Hypothyroidism, unspecified; G43.909 Migraine, unspecified, not intractable, without status migrainosus; G40.909 Epilepsy, unspecified, not intractable, without status epilepticus
CPT/HCPCS: 36415; 76830; 80053; 81003; 81025; 83690; 85025; 96374; 96375; 99285; J2405; J2765; J7030

== ENCOUNTER 2017-10-13 16:23 | Emergency (ER) | payer MEDICAID ==
[~2017-10-13] VITALS: Ht 165.1 cm; Wt 81.5 kg
[~2017-10-13 16:23] MED LIST changes: +AZIT250T89 PO; +GABA300C10 PO; +PROM25SU34 RC; +TRAZ-137 PO; -TRAZ100T15 PO
[2017-10-13 16:26] VITALS: BP 118/79
[2017-10-13 16:59] LABS: BASOPHILS # (AUTO) 0.05 x10^3/uL (0-0.1); BASOPHILS % (AUTO) 1 % (0-1); EOSINOPHILS # (AUTO) 0.17 x10^3/uL (0-0.4); EOSINOPHILS % (AUTO) 3 % (1-7); LYMPHOCYTES % (AUTO) 38 % (22-44); MD NO; MEAN CORPUSCULAR HEMOGLOBIN 32.3 pg (27.0-34.8); MEAN CORPUSCULAR VOLUME 92.3 fL (80-100); MEAN PLATELET VOLUME 7.7 fL (7.4-10.4); MONOCYTES # (AUTO) 0.82 x10^3/uL (0.2-0.8); MONOCYTES % (AUTO) 12 % (2-9); NEUTROPHILS # (AUTO) 3.13 x10^3/uL (1.8-6.8); NEUTROPHILS % (AUTO) 46 % (42-75); PLATELET COUNT 321 x10^3/uL (130-400); RED BLOOD COUNT 3.82 x10^6/uL (3.82-5.3); RED CELL DISTRIBUTION WIDTH 14.5 % (9.6-15.2)
[2017-10-13 17:05] LABS: ANION GAP 4 mmol/L (5-15); CALCIUM 8.6 mg/dL (8.5-10.1); CHLORIDE 110 mmol/L (98-107)
[2017-10-13 17:10] LABS: CREATININE 0.87 mg/dL (0.55-1.02)
[2017-10-13] MEDS ORDERED: METOCLOPRAMIDE 5 MG/ML, 2ML IVPush ONE (18:00)
[2017-10-13] MEDS ORDERED: KETOROLAC 30 MG/1 ML IVPush ONE (18:00)
[2017-10-13] MEDS ORDERED: DEXAMETHASONE 4 MG/ML, 1ML IVPush ONE (18:00)
[2017-10-13] MEDS ORDERED: DIPHENHYDRAMINE 50 MG/ML, 1ML IVPush ONE (18:00)
[2017-10-13] MEDS ORDERED: METOCLOPRAMIDE 5 MG/ML, 2ML ONE (18:05)
[2017-10-13] MEDS ORDERED: KETOROLAC 30 MG/1 ML ONE (18:05)
[2017-10-13] MEDS ORDERED: DIPHENHYDRAMINE 50 MG/ML, 1ML ONE (18:05)
[2017-10-13] MEDS ORDERED: DEXAMETHASONE 4 MG/ML, 5ML ONE (18:06)
== END 2017-10-13 19:04 | disposition home or self-care (01) ==
LOC: ED 18:21
DX: G44.211 Episodic tension-type headache, intractable (principal); R53.1 Weakness; E03.9 Hypothyroidism, unspecified; G40.909 Epilepsy, unspecified, not intractable, without status epilepticus
CPT/HCPCS: 36415; 80048; 84703; 85025; 96374; 96375; 99284; J1100; J1200; J1885; J2765

== ENCOUNTER 2017-10-20 17:08 | Emergency (ER) | payer MEDICAID ==
[~2017-10-20] VITALS: Ht 162.6 cm; Wt 82.0 kg
[2017-10-20] MEDS ORDERED: ACETAMINOPHEN 500 MG TABLET PO ONE (17:30)
[2017-10-20] MEDS ORDERED: LEVETIRACETAM 1,000 MG in SODIUM CHLORIDE 0.9% 100 ML IV ONE (17:30)
[2017-10-20] MEDS ORDERED: PROCHLORPERAZINE 5 MG/ML, 2ML IVPush ONE (17:30)
[2017-10-20] MEDS ORDERED: SODIUM CHLORIDE 0.9% 1,000ML IVBOLUS ONE (17:30)
[2017-10-20] MEDS ORDERED: KETOROLAC 30 MG/1 ML IVPush ONE (17:30)
[2017-10-20 17:49] LABS: BASOPHILS # (AUTO) 0.07 x10^3/uL (0-0.1); BASOPHILS % (AUTO) 1 % (0-1); EOSINOPHILS # (AUTO) 0.24 x10^3/uL (0-0.4); EOSINOPHILS % (AUTO) 4 % (1-7); LYMPHOCYTES # (AUTO) 2.16 x10^3/uL (1-3.4); LYMPHOCYTES % (AUTO) 35 % (22-44); MD NO; MEAN CORPUSCULAR HEMOGLOBIN 32.3 pg (27.0-34.8); MEAN CORPUSCULAR HGB CONC 34.3 g/dL (32.4-35.8); MEAN PLATELET VOLUME 7.4 fL (7.4-10.4); MONOCYTES # (AUTO) 0.56 x10^3/uL (0.2-0.8); MONOCYTES % (AUTO) 9 % (2-9); NEUTROPHILS # (AUTO) 3.13 x10^3/uL (1.8-6.8); NEUTROPHILS % (AUTO) 51 % (42-75); PLATELET COUNT 295 x10^3/uL (130-400); RED BLOOD COUNT 3.57 x10^6/uL (3.82-5.3); RED CELL DISTRIBUTION WIDTH 14.7 % (9.6-15.2)
[2017-10-20 18:00] LABS: ANION GAP 5 mmol/L (5-15); CALCIUM 8.1 mg/dL (8.5-10.1); CHLORIDE 112 mmol/L (98-107); CREATININE 0.86 mg/dL (0.55-1.02)
[2017-10-20] MEDS ORDERED: PROCHLORPERAZINE 5 MG/ML, 2ML ONE (18:13)
[2017-10-20] MEDS ORDERED: KETOROLAC 30 MG/1 ML ONE (18:13)
[2017-10-20] MEDS ORDERED: ACETAMINOPHEN 500 MG TABLET ONE (18:13)
[2017-10-20 18:39] LABS: MICROSCOPIC NOT IND
[2017-10-20 18:42] LABS: CULTURE INDICATED? NO
[2017-10-20 19:39] VITALS: BP 111/75
== END 2017-10-20 20:06 | disposition home or self-care (01) ==
LOC: ED 18:32
DX: R56.9 Unspecified convulsions (principal); G43.909 Migraine, unspecified, not intractable, without status migrainosus
CPT/HCPCS: 36415; 80048; 81003; 82040; 85025; 93005; 96365; 96375; 99285; J0780; J1885; J1953; J7030

== ENCOUNTER 2017-11-16 16:19 | Emergency (ER) | payer MEDICAID ==
[~2017-11-16] VITALS: Ht 167.6 cm; Wt 79.6 kg
[2017-11-16 17:26] LABS: BASOPHILS # (AUTO) 0.03 x10^3/uL (0-0.1); BASOPHILS % (AUTO) 0 % (0-1); EOSINOPHILS # (AUTO) 0.24 x10^3/uL (0-0.4); EOSINOPHILS % (AUTO) 2 % (1-7); LYMPHOCYTES # (AUTO) 1.88 x10^3/uL (1-3.4); LYMPHOCYTES % (AUTO) 16 % (22-44); MD NO; MEAN CORPUSCULAR HEMOGLOBIN 32.2 pg (27.0-34.8); MEAN CORPUSCULAR HGB CONC 34.4 g/dL (32.4-35.8); MEAN CORPUSCULAR VOLUME 93.6 fL (80-100); MONOCYTES # (AUTO) 0.54 x10^3/uL (0.2-0.8); MONOCYTES % (AUTO) 5 % (2-9); NEUTROPHILS % (AUTO) 77 % (42-75); PLATELET COUNT 253 x10^3/uL (130-400); RED BLOOD COUNT 3.54 x10^6/uL (3.82-5.3); RED CELL DISTRIBUTION WIDTH 15.1 % (9.6-15.2)
[2017-11-16 17:35] LABS: ALBUMIN 3.1 g/dL (3.4-5.0); ANION GAP 8 mmol/L (5-15); CALCIUM 7.8 mg/dL (8.5-10.1); CHLORIDE 109 mmol/L (98-107)
[2017-11-16 17:36] LABS: SALICYLATE LEVEL < 1.7 mg/dL (2.8-20.0)
[2017-11-16 17:39] LABS: ACETAMINOPHEN < 2 mcg/mL (10-30); ALANINE AMINOTRANSFERASE 22 U/L (12-78); ALKALINE PHOSPHATASE 103 U/L (45-117); BILIRUBIN,TOTAL 0.5 mg/dL (0.2-1.0); CREATININE 0.96 mg/dL (0.55-1.02); TOTAL PROTEIN 7.1 g/dL (6.4-8.2)
[2017-11-16] MEDS ORDERED: SODIUM CHLORIDE 0.9% 1,000ML IVBOLUS ONE (18:00)
[2017-11-16 18:32] LABS: AMPHETAMINE SCREEN, URINE Negative (Negative); BARBITURATE SCREEN, URINE Negative (Negative); BENZODIAZEPINE SCREEN, URINE Positive (Negative); CANNABINOID SCREEN, URINE Negative (Negative); COCAINE SCREEN, URINE Negative (Negative); METHADONE SCREEN, URINE Negative (Negative); OPIATE SCREEN, URINE Positive (Negative)
[2017-11-16 18:49] VITALS: BP 97/50
[2017-11-16] MEDS ORDERED: GLUCAGON 1 MG IVPush ONE (19:00)
[2017-11-16] MEDS ORDERED: GLUCAGON 1 MG ONE ×2 (19:38→19:40)
== END 2017-11-16 19:52 | disposition left against medical advice (07) ==
LOC: ED 16:52
DX: R42 Dizziness and giddiness (principal); I95.2 Hypotension due to drugs; E03.9 Hypothyroidism, unspecified; G89.29 Other chronic pain; G43.909 Migraine, unspecified, not intractable, without status migrainosus; G40.909 Epilepsy, unspecified, not intractable, without status epilepticus
CPT/HCPCS: 36415; 80053; 80307; 80329; 85025; 93005; 96360; 96361; 99285; J7030; G0480

== ENCOUNTER 2017-12-06 13:43 | Emergency (ER) | payer MEDICAID ==
[~2017-12-06] VITALS: Ht 162.6 cm; Wt 79.0 kg
[2017-12-06] MEDS ORDERED: ONDANSETRON ODT 4 MG PO ONE (14:00)
[2017-12-06] MEDS ORDERED: SODIUM CHLORIDE FLUSH 10ML SYR IVF ONE (14:00)
[2017-12-06] MEDS ORDERED: KETOROLAC 30 MG/1 ML IVPush ONE (14:00)
[2017-12-06 14:24] LABS: BASOPHILS # (AUTO) 0.07 x10^3/uL (0-0.1); BASOPHILS % (AUTO) 1 % (0-1); EOSINOPHILS # (AUTO) 0.22 x10^3/uL (0-0.4); EOSINOPHILS % (AUTO) 4 % (1-7); LYMPHOCYTES % (AUTO) 39 % (22-44); MD NO; MEAN CORPUSCULAR HEMOGLOBIN 31.3 pg (27.0-34.8); MEAN CORPUSCULAR HGB CONC 33.9 g/dL (32.4-35.8); MEAN CORPUSCULAR VOLUME 92.4 fL (80-100); MONOCYTES % (AUTO) 8 % (2-9); NEUTROPHILS # (AUTO) 2.35 x10^3/uL (1.8-6.8); NEUTROPHILS % (AUTO) 48 % (42-75); PLATELET COUNT 320 x10^3/uL (130-400); RED CELL DISTRIBUTION WIDTH 14.8 % (9.6-15.2)
[2017-12-06 14:32] LABS: MICROSCOPIC NOT IND
[2017-12-06 14:34] LABS: ALANINE AMINOTRANSFERASE 22 U/L (12-78); ALBUMIN 3.5 g/dL (3.4-5.0); ANION GAP 8 mmol/L (5-15); CALCIUM 8.5 mg/dL (8.5-10.1); CHLORIDE 108 mmol/L (98-107); CREATININE 0.82 mg/dL (0.55-1.02)
[2017-12-06 14:35] LABS: CULTURE INDICATED? NO
[2017-12-06 14:36] LABS: ALKALINE PHOSPHATASE 83 U/L (45-117); BILIRUBIN,TOTAL 0.3 mg/dL (0.2-1.0); TOTAL PROTEIN 7.7 g/dL (6.4-8.2)
[2017-12-06 14:36] LABS: HCG UR SG 1.012 (1.003-1.030)
[2017-12-06] MEDS ORDERED: KETOROLAC 30 MG/1 ML ONE ×2 (14:57→15:33)
[2017-12-06] MEDS ORDERED: ONDANSETRON ODT 4 MG ONE (14:57)
[2017-12-06] MEDS ORDERED: DIVALPROEX 500 MG TABLET.DR PO ONE (15:00)
[2017-12-06 15:03] VITALS: BP 112/82
[2017-12-06] MEDS ORDERED: KETOROLAC 10MG TABLET PO ONE (15:30)
[2017-12-06] MEDS ORDERED: DIPHENHYDRAMINE 25 MG CAPSULE ONE (15:33)
[2017-12-06] MEDS ORDERED: DIPHENHYDRAMINE 25 MG CAPSULE PO ONE (16:00)
== END 2017-12-06 15:57 | disposition home or self-care (01) ==
LOC: ED 13:57
DX: R56.9 Unspecified convulsions (principal); G89.29 Other chronic pain; G43.909 Migraine, unspecified, not intractable, without status migrainosus; E03.9 Hypothyroidism, unspecified
CPT/HCPCS: 36415; 80053; 80164; 80177; 81003; 81025; 85025; 93005; 96374; 99285; J1885; Q0162; Q0163

== ENCOUNTER 2017-12-06 20:24 | Emergency (ER) | payer MEDICAID ==
[~2017-12-06] VITALS: Ht 162.6 cm; Wt 79.8 kg
[2017-12-06] MEDS ORDERED: ONDANSETRON ODT 4 MG PO ONE (21:30)
[2017-12-06] MEDS ORDERED: ONDANSETRON ODT 4 MG ONE (21:34)
[2017-12-06 22:34] VITALS: BP 111/75
== END 2017-12-06 22:36 | disposition home or self-care (01) ==
LOC: ED 22:28
DX: S06.9X1A Unspecified intracranial injury with loss of consciousness of 30 minutes or less, initial encounter (principal); I95.9 Hypotension, unspecified; G40.909 Epilepsy, unspecified, not intractable, without status epilepticus; G43.909 Migraine, unspecified, not intractable, without status migrainosus; G89.29 Other chronic pain; E03.9 Hypothyroidism, unspecified; W18.30XA Fall on same level, unspecified, initial encounter; Y93.89 Activity, other specified; Y92.002 Bathroom of unspecified non-institutional (private) residence as the place of occurrence of the external cause; Y99.9 Unspecified external cause status
CPT/HCPCS: 70450; 93005; 99284; Q0162

== ENCOUNTER 2018-02-02 07:02 | Emergency (ER) | payer MEDICAID ==
[~2018-02-02] VITALS: Ht 162.6 cm; Wt 80.1 kg
[~2018-02-02 07:02] MED LIST changes: -MIDO5TAB PO; +MIDO5TAB9 PO
[2018-02-02 07:45] LABS: BASOPHILS # (AUTO) 0.05 x10^3/uL (0-0.1); BASOPHILS % (AUTO) 1 % (0-1); EOSINOPHILS # (AUTO) 0.16 x10^3/uL (0-0.4); EOSINOPHILS % (AUTO) 4 % (1-7); LYMPHOCYTES # (AUTO) 1.42 x10^3/uL (1-3.4); LYMPHOCYTES % (AUTO) 35 % (22-44); MD NO; MEAN CORPUSCULAR VOLUME 94.1 fL (80-100); MEAN PLATELET VOLUME 7.9 fL (7.4-10.4); MONOCYTES # (AUTO) 0.43 x10^3/uL (0.2-0.8); MONOCYTES % (AUTO) 11 % (2-9); NEUTROPHILS # (AUTO) 2.01 x10^3/uL (1.8-6.8); NEUTROPHILS % (AUTO) 49 % (42-75); PLATELET COUNT 279 x10^3/uL (130-400); RED BLOOD COUNT 3.97 x10^6/uL (3.82-5.3); RED CELL DISTRIBUTION WIDTH 15.4 % (9.6-15.2)
[2018-02-02 07:57] LABS: ALBUMIN 3.6 g/dL (3.4-5.0); ANION GAP 7 mmol/L (5-15); CALCIUM 7.6 mg/dL (8.5-10.1); CHLORIDE 112 mmol/L (98-107)
[2018-02-02 08:02] LABS: ALANINE AMINOTRANSFERASE 20 U/L (12-78); ALKALINE PHOSPHATASE 98 U/L (45-117); BILIRUBIN,TOTAL 0.2 mg/dL (0.2-1.0); CREATININE 0.81 mg/dL (0.55-1.02); TOTAL PROTEIN 7.7 g/dL (6.4-8.2)
[2018-02-02 08:58] LABS: MICROSCOPIC AUTO
[2018-02-02] MEDS ORDERED: PROCHLORPERAZINE 5 MG/ML, 2ML ONE (08:58)
[2018-02-02] MEDS ORDERED: DIPHENHYDRAMINE 50 MG/ML, 1ML ONE (08:58)
[2018-02-02] MEDS ORDERED: KETOROLAC 30 MG/1 ML ONE (08:58)
[2018-02-02 09:00] LABS: CULTURE INDICATED? YES
[2018-02-02] MEDS ORDERED: KETOROLAC 30 MG/1 ML IVPush ONE (09:00)
[2018-02-02] MEDS ORDERED: DIPHENHYDRAMINE 50 MG/ML, 1ML IVPush ONE (09:00)
[2018-02-02] MEDS ORDERED: PROCHLORPERAZINE 5 MG/ML, 2ML IVPush ONE (09:00)
[2018-02-02] MEDS ORDERED: SODIUM CHLORIDE FLUSH 10ML SYR IVF ONE (09:00)
[2018-02-02 09:06] VITALS: BP 103/64
== END 2018-02-02 10:54 | disposition home or self-care (01) ==
LOC: ED 08:00
DX: S09.8XXA Other specified injuries of head, initial encounter (principal); S16.1XXA Strain of muscle, fascia and tendon at neck level, initial encounter; G40.909 Epilepsy, unspecified, not intractable, without status epilepticus; I10 Essential (primary) hypertension; E03.9 Hypothyroidism, unspecified; Z87.19 Personal history of other diseases of the digestive system; Z87.01 Personal history of pneumonia (recurrent); W19.XXXA Unspecified fall, initial encounter; Y93.89 Activity, other specified; Y92.89 Other specified places as the place of occurrence of the external cause; Y99.8 Other external cause status
CPT/HCPCS: 36415; 70450; 72125; 80053; 80164; 81001; 84703; 85025; 87086; 96374; 96375; 99284; J0780; J1200; J1885

== ENCOUNTER 2018-02-23 09:29 | Emergency (ER) | payer MEDICAID ==
[~2018-02-23] VITALS: Ht 165.1 cm; Wt 81.2 kg
--- NOTE | 2018-02-23 10:00 | NUR ---
PT C/O RLQ PAIN THAT RADIATES TO RIGHT FLANK X 3 WEEKS, WORSE IN THE LAST FEW DAYS.
[2018-02-23 10:20] LABS: BASOPHILS # (AUTO) 0.05 x10^3/uL (0-0.1); BASOPHILS % (AUTO) 1 % (0-1); EOSINOPHILS # (AUTO) 0.38 x10^3/uL (0-0.4); EOSINOPHILS % (AUTO) 8 % (1-7); LYMPHOCYTES # (AUTO) 1.73 x10^3/uL (1-3.4); LYMPHOCYTES % (AUTO) 36 % (22-44); MD NO; MEAN CORPUSCULAR HEMOGLOBIN 32.6 pg (27.0-34.8); MEAN CORPUSCULAR HGB CONC 34.7 g/dL (32.4-35.8); MEAN CORPUSCULAR VOLUME 94.1 fL (80-100); MEAN PLATELET VOLUME 7.7 fL (7.4-10.4); MONOCYTES # (AUTO) 0.35 x10^3/uL (0.2-0.8); MONOCYTES % (AUTO) 7 % (2-9); NEUTROPHILS # (AUTO) 2.29 x10^3/uL (1.8-6.8); NEUTROPHILS % (AUTO) 48 % (42-75); PLATELET COUNT 336 x10^3/uL (130-400); RED BLOOD COUNT 3.79 x10^6/uL (3.82-5.3); RED CELL DISTRIBUTION WIDTH 14.7 % (9.6-15.2)
[2018-02-23 10:32] LABS: ALBUMIN 3.4 g/dL (3.4-5.0); ANION GAP 8 mmol/L (5-15); CALCIUM 7.9 mg/dL (8.5-10.1); CHLORIDE 110 mmol/L (98-107); CREATININE 0.86 mg/dL (0.55-1.02)
[2018-02-23 10:37] LABS: ALKALINE PHOSPHATASE 110 U/L (45-117); BILIRUBIN,TOTAL 0.2 mg/dL (0.2-1.0); TOTAL PROTEIN 7.2 g/dL (6.4-8.2)
[2018-02-23 10:39] LABS: MICROSCOPIC INDICATED
[2018-02-23 10:50] LABS: CULTURE INDICATED? YES
--- NOTE | 2018-02-23 10:53 | NUR ---
PT RESTING ON GURNEY. NO NEW COMPLAINTS AT THIS TIME. IS AT BEDSIDE. CALL LIGHT IS WITHIN REACH. UPDATE DON POC. WAITING FOR US RESULTS.
[2018-02-23 11:05] LABS: ALANINE AMINOTRANSFERASE 21 U/L (12-78)
[2018-02-23 11:15] VITALS: BP 115/82
== END 2018-02-23 11:38 | disposition home or self-care (01) ==
LOC: ED 10:18
DX: N83.01 Follicular cyst of right ovary (principal); G40.909 Epilepsy, unspecified, not intractable, without status epilepticus; E03.9 Hypothyroidism, unspecified; I95.9 Hypotension, unspecified
CPT/HCPCS: 36415; 76830; 80053; 81001; 84703; 85025; 87077; 87086; 87186; 99284

== ENCOUNTER 2018-03-09 19:58 | Emergency (ER) | payer MEDICAID ==
[~2018-03-09] VITALS: Ht 162.6 cm; Wt 80.6 kg
[~2018-03-09 19:58] MED LIST changes: +SERT100T32 PO; -SERT100T5 PO; +ZOLP-413 PO
--- NOTE | 2018-03-09 20:13 | NUR ---
PT AMBULATES WITH STEADY GAIT TO ROOM FROM TRIAGE.
--- NOTE | 2018-03-09 20:25 | NUR ---
LAB AT BEDSIDE FOR BLOOD DRAW.
--- NOTE | 2018-03-09 20:27 | NUR ---
PROVIDER TO BEDSIDE FOR PT EVAL.
--- NOTE | 2018-03-09 20:28 | NUR ---
PT REPORTS HAVING URTERIN BIOPSY RECENTLY WITH GYNO, PT STATES SINCE THEN SHE HAS HAD "BLOOD AND PUS" VAGINAL DRAINAGE AND SEVERE LOW ABD PAIN. PT REPORTS SHE CALLED MD WHO DID BIOPSY AND THEY TOLD HER THE VAGINAL DRAINAGE IS NORMAL BUT THE PAIN IS NOT AND TO BE SEEN. PT REPORTS HAVING NAUSEA, DENIES EMESIS, DENIES URINARY SX. PT REPORTS PAIN TO LOW ABD CONSISTANT WITH SHARP INTERMITTENT WORSE PAINS. PT A/0X4, BREATHING E/U. PT IN BED WITH SO AT BEDSIDE. AWAITING FURTHER ORDERS.
[2018-03-09 20:29] LABS: BASOPHILS # (AUTO) 0.04 x10^3/uL (0-0.1); BASOPHILS % (AUTO) 1 % (0-1); EOSINOPHILS # (AUTO) 0.21 x10^3/uL (0-0.4); EOSINOPHILS % (AUTO) 4 % (1-7); LYMPHOCYTES % (AUTO) 38 % (22-44); MD NO; MEAN CORPUSCULAR HEMOGLOBIN 32.4 pg (27.0-34.8); MEAN CORPUSCULAR HGB CONC 34.1 g/dL (32.4-35.8); MEAN CORPUSCULAR VOLUME 95.2 fL (80-100); MEAN PLATELET VOLUME 7.5 fL (7.4-10.4); MONOCYTES # (AUTO) 0.42 x10^3/uL (0.2-0.8); MONOCYTES % (AUTO) 8 % (2-9); NEUTROPHILS # (AUTO) 2.51 x10^3/uL (1.8-6.8); NEUTROPHILS % (AUTO) 49 % (42-75); PLATELET COUNT 331 x10^3/uL (130-400); RED BLOOD COUNT 3.64 x10^6/uL (3.82-5.3); RED CELL DISTRIBUTION WIDTH 14.6 % (9.6-15.2)
[2018-03-09 20:41] LABS: ALBUMIN 3.5 g/dL (3.4-5.0); ANION GAP 5 mmol/L (5-15); CALCIUM 8.2 mg/dL (8.5-10.1); CHLORIDE 112 mmol/L (98-107); CREATININE 0.72 mg/dL (0.55-1.02)
[2018-03-09] MEDS ORDERED: KETOROLAC 30 MG/1 ML ONE (20:44)
[2018-03-09] MEDS ORDERED: ONDANSETRON ODT 4 MG ONE (20:44)
--- NOTE | 2018-03-09 20:58 | NUR ---
PT RECIEVED ZOFRAN. PT REFUSED TORADOL, STATES SHE HAD IT BEFORE AND IT DOES NOT WORK FOR PAIN. PROVIDER NOTIFIED. PT TO HAVE MORPHINE, AWAITING ORDERS. IV IN PLACE.
[2018-03-09] MEDS ORDERED: KETOROLAC 30 MG/1 ML IVPush ONE (21:00)
[2018-03-09] MEDS ORDERED: SODIUM CHLORIDE FLUSH 10ML SYR IVF ONE (21:00)
[2018-03-09] MEDS ORDERED: ONDANSETRON ODT 4 MG PO ONE (21:00)
[2018-03-09] MEDS ORDERED: MORPHINE SULFATE 4 MG/ML, 1ML ONE ×2 (21:07→22:01)
[2018-03-09] MEDS: MORPHINE SULFATE 4 MG/ML, 1ML IVPush PRN ×2 (21:11→22:05)
--- NOTE | 2018-03-09 21:17 | NUR ---
PT RECIEVED MORPHINE, SEE EMAR. PT TO US BEFORE URINE COULD BE COLLECTED. URINE TO BE COLLECTED UPON RETURN.
--- NOTE | 2018-03-09 21:58 | NUR ---
URINE COLLECTED VIA STRAIGHT CATH PER ORDERS. URINE SENT TO LAB. PT TOLERATED WELL. STERILE TECHNIQUE USED AND MAINTAINED. PT REPORTS PAIN REDUCED BUT CONTINUES AND IS REQUESTING SECOND DOSE OF MORPHINE. WILL GIVE.
--- NOTE | 2018-03-09 22:00 | NUR ---
PROVIDER TO BEDSIDE FOR PT UPDATE.
--- NOTE | 2018-03-09 22:06 | NUR ---
PT RECIEVED MORPHINE PER ORDERS, SEE EMAR. VSS. PT AWAITING URINE RESULTS. NO DISTRESS NOTED. CALL LIGHT IN REACH.
[2018-03-09 22:14] LABS: MICROSCOPIC NOT IND
[2018-03-09 22:16] LABS: CULTURE INDICATED? NO
--- NOTE | 2018-03-09 22:24 | NUR ---
PT REPORTS MIGRAINE, STATES SHE HAS A HX OF MIGRAINES AND IS REQUESTING "BENADRYL AND SOMETHING ELSE THEY USUALLY GIVE ME." NOTIFIED. VERBAL ORDER FROM MD KOTHARI FOR BENADRYL 25MG IV X1 AND REGLAN 10MG IV X1 NOW.
[2018-03-09] MEDS ORDERED: METOCLOPRAMIDE 5 MG/ML, 2ML ONE (22:30)
[2018-03-09] MEDS ORDERED: METOCLOPRAMIDE 5 MG/ML, 2ML IVPush ONE ×2 (22:30→23:00)
[2018-03-09] MEDS ORDERED: DIPHENHYDRAMINE 50 MG/ML, 1ML ONE (22:30)
[2018-03-09] MEDS ORDERED: DIPHENHYDRAMINE 50 MG/ML, 1ML IVPush ONE ×2 (22:30→23:00)
--- NOTE | 2018-03-09 22:51 | NUR ---
PT RECIEVED MEDS PER ORDERS, SEE EMAR. PT VSS. AWAITING UPDATE BY MD. WILL MONITOR. CALL LIGHT IN REACH.
[2018-03-09 23:20] VITALS: BP 102/70
== END 2018-03-09 23:45 | disposition home or self-care (01) ==
LOC: ED 20:38
DX: R10.0 Acute abdomen (principal); R11.0 Nausea; G40.909 Epilepsy, unspecified, not intractable, without status epilepticus; E03.9 Hypothyroidism, unspecified; Z90.49 Acquired absence of other specified parts of digestive tract
CPT/HCPCS: 36415; 76830; 80048; 81003; 82040; 84703; 85025; 96374; 96375; 96376; 99284; J1200; J2765; Q0162

== ENCOUNTER 2018-03-13 15:25 | Emergency (ER) | payer MEDICAID ==
[~2018-03-13] VITALS: Ht 162.6 cm; Wt 78.5 kg
[2018-03-13] MEDS ORDERED: PROMETHAZINE 25 MG/ML, 1ML ONE (15:47)
--- NOTE | 2018-03-13 15:50 | NUR ---
PT AMBULATED STEADILY TO ROOM WITH PHOTOGRAPHS CURATOR. NAD NOTED. PT TO BATHROOM TO PROVIDE UA. FAMILY PRESENT.
[2018-03-13] MEDS ORDERED: PROMETHAZINE 25 MG/ML, 1ML IM ONE (16:00)
--- NOTE | 2018-03-13 16:02 | NUR ---
PT REPORTS INTERMITTENT N/V/PELVIC ABD PAIN X SEVERAL WEEKS, SEEN IN ED FOR SAME. PT REPORTS PAIN IS SAME "BUT WORSE" THAN BEFORE. HX OF OVARIAN CYSTS AND "MY CERVIX IS TOO LOW". SCHEDULED HYST FOR MAR. REPORTS RECENT TX FOR UTI. ; DENIES CURRENT DENIES VAGINAL BLEEDING/BLOOD IN STOOL/URINARY SYMPTOMS/FEVER. PT MEDICATED PER EMAR. UA COLLECTED AND SENT TO LAB. BP/SPO2 MONITOR IN PLACE.
[2018-03-13 16:14] LABS: BASOPHILS # (AUTO) 0.02 x10^3/uL (0-0.1); BASOPHILS % (AUTO) 0 % (0-1); EOSINOPHILS # (AUTO) 0.14 x10^3/uL (0-0.4); EOSINOPHILS % (AUTO) 3 % (1-7); LYMPHOCYTES # (AUTO) 1.63 x10^3/uL (1-3.4); LYMPHOCYTES % (AUTO) 35 % (22-44); MD NO; MEAN CORPUSCULAR HEMOGLOBIN 32.7 pg (27.0-34.8); MEAN CORPUSCULAR HGB CONC 34.1 g/dL (32.4-35.8); MEAN CORPUSCULAR VOLUME 95.9 fL (80-100); MEAN PLATELET VOLUME 7.7 fL (7.4-10.4); MONOCYTES # (AUTO) 0.31 x10^3/uL (0.2-0.8); MONOCYTES % (AUTO) 7 % (2-9); NEUTROPHILS % (AUTO) 54 % (42-75); PLATELET COUNT 403 x10^3/uL (130-400); RED BLOOD COUNT 3.94 x10^6/uL (3.82-5.3); RED CELL DISTRIBUTION WIDTH 14.4 % (9.6-15.2)
[2018-03-13 16:16] LABS: HCG UR SG 1.027 (1.003-1.030)
[2018-03-13 16:23] LABS: MICROSCOPIC INDICATED
[2018-03-13 16:25] LABS: CULTURE INDICATED? YES
[2018-03-13 16:25] LABS: ALBUMIN 3.9 g/dL (3.4-5.0); ANION GAP 7 mmol/L (5-15); CALCIUM 8.7 mg/dL (8.5-10.1); CHLORIDE 109 mmol/L (98-107)
[2018-03-13 16:33] LABS: ALANINE AMINOTRANSFERASE 17 U/L (12-78); ALKALINE PHOSPHATASE 113 U/L (45-117); BILIRUBIN,TOTAL 0.6 mg/dL (0.2-1.0); CREATININE 0.81 mg/dL (0.55-1.02); TOTAL PROTEIN 8.2 g/dL (6.4-8.2)
--- NOTE | 2018-03-13 17:17 | NUR ---
PT SITTING UP IN GURNEY EATING A SANDWICH. DENIES N/V. REPORTS IMPROVEMENT IN PAIN. DC EDUCATION PROVIDED, PT DEMONSTRATES UNDERSTANDING. PT AMBULATED STEADILY TO DC WITH FAMILY. SO TO TRANSPORT PT HOME.
[2018-03-13 17:18] VITALS: BP 119/70
== END 2018-03-13 17:19 | disposition home or self-care (01) ==
LOC: ED 17:13
DX: G89.29 Other chronic pain (principal); R10.84 Generalized abdominal pain; R11.2 Nausea with vomiting, unspecified; R19.7 Diarrhea, unspecified; E03.9 Hypothyroidism, unspecified; G43.909 Migraine, unspecified, not intractable, without status migrainosus; G40.909 Epilepsy, unspecified, not intractable, without status epilepticus
CPT/HCPCS: 36415; 74021; 80053; 81001; 81025; 85025; 87077; 87086; 87186; 96372; 99284; J2550

== ENCOUNTER 2018-03-29 13:46 | Emergency (ER) | payer MEDICAID ==
[~2018-03-29] VITALS: Ht 162.6 cm; Wt 79.0 kg
[2018-03-29 14:00] VITALS: BP 121/83
== END 2018-03-29 14:36 | disposition home or self-care (01) ==
LOC: ED 14:06
DX: R05 Cough (principal); R50.9 Fever, unspecified; G43.909 Migraine, unspecified, not intractable, without status migrainosus; E03.9 Hypothyroidism, unspecified; G40.909 Epilepsy, unspecified, not intractable, without status epilepticus
CPT/HCPCS: 71046; 99283

== ENCOUNTER 2018-04-03 08:38 | Outpatient (CLI) | payer MEDICAID ==
[2018-04-03] MEDS ORDERED: BUSP10TA PO (09:05)
[2018-04-03] MEDS ORDERED: BENZ-17 PO (09:05)
[2018-04-03] MEDS ORDERED: HYDR10CA3 PO (09:05)
[2018-04-03] MEDS ORDERED: OXYC20TA2 PO (09:05)
[2018-04-03] MEDS ORDERED: LEVE100020 PO (09:05)
[2018-04-03] MEDS ORDERED: PRAZ1CAP2 PO (09:05)
[2018-04-03] MEDS ORDERED: OMEP-110 PO (09:05)
[2018-04-03] MEDS ORDERED: HYOS0.1268 PO (09:05)
[2018-04-03] MEDS ORDERED: ZOLP10TA PO (09:05)
[2018-04-03] MEDS ORDERED: TOPI25TA8 PO (09:05)
[2018-04-03] MEDS ORDERED: LINA145C PO (09:05)
== END 2018-04-03 23:59 | disposition home or self-care (01) ==
LOC: STAR 08:38
PROVIDERS: ATTEND Obstetrics & Gynecology Female Pelvic Medicine and Reconstructive Surgery
DX: Z02.9 Encounter for administrative examinations, unspecified (principal)

== ENCOUNTER 2018-04-13 06:34 | Day surgery (SDC) | payer MEDICAID ==
[~2018-04-13] VITALS: Ht 162.6 cm; Wt 81.2 kg
[~2018-04-13 06:34] MED LIST changes: +BENZ-17 PO; +BUSP10TA PO; +HYDR10CA3 PO; +LEVE100020 PO; +LINA145C PO; +OMEP-110 PO; +PRAZ1CAP2 PO; +TOPI25TA8 PO; +ZOLP10TA PO
[2018-04-13] MEDS ORDERED: BUPIVACAINE/PF 0.25% ONE ×2 (06:35→06:38)
[2018-04-13] MEDS ORDERED: NEOMY/POLYMYXIN B GU IRR. 1 ML ONE (06:36)
[2018-04-13] MEDS ORDERED: EPINEPHRINE 1 MG/ML, 1ML ONE (06:36)
[2018-04-13 07:04] VITALS: BP 88/60
[2018-04-13] MEDS ORDERED: LACTATED RINGERS 1,000 ML IV SCH (07:12)
[2018-04-13] MEDS ORDERED: LIDOCAINE-MPF 1%, 2ML INFIL ONE (07:30)
[2018-04-13] MEDS ORDERED: FENTANYL PF 100 MCG/2ML ONE ×2 (09:03→11:22)
[2018-04-13] MEDS ORDERED: PROPOFOL 10 MG/ML, 20ML ONE (09:07)
[2018-04-13] MEDS ORDERED: ONDANSETRON 2MG/ML, 2ML ONE (09:07)
[2018-04-13] MEDS ORDERED: METOCLOPRAMIDE 5 MG/ML, 2ML ONE (09:07)
[2018-04-13] MEDS ORDERED: DEXAMETHASONE 4 MG/ML, 1ML ONE (09:07)
[2018-04-13] MEDS ORDERED: CEFAZOLIN 1,000 MG ONE (09:07)
[2018-04-13] MEDS ORDERED: MIDAZOLAM 1 MG/ML, 2ML IV PRN (11:00)
[2018-04-13] MEDS ORDERED: LABETALOL 5MG/ML, 20ML IV PRN (11:00)
[2018-04-13] MEDS ORDERED: ONDANSETRON 2MG/ML, 2ML IVPush PRN (11:00)
[2018-04-13] MEDS ORDERED: MEPERIDINE/PF 25MG/0.5ML IVPush PRN (11:00)
[2018-04-13] MEDS ORDERED: OXYcodone 5 MG/5 ML ORAL.SOL UDC PO PRN (11:00)
[2018-04-13] MEDS ORDERED: FENTANYL PF 100 MCG/2ML IV PRN (11:00)
[2018-04-13] MEDS ORDERED: HYDROmorphone 1 MG/ML, 1ML IV PRN (11:00)
[2018-04-13] MEDS ORDERED: KETOROLAC 30 MG/1 ML ONE (11:22)
[2018-04-13] MEDS ORDERED: KETOROLAC 30 MG/1 ML IVPush PRN (11:30)
[2018-04-13] MEDS ORDERED: OXYcodone 5 MG/5 ML ORAL.SOL UDC ONE (11:58)
[2018-04-13] MEDS ORDERED: HYDROcodone/APAP 5/325 TABLET PO PRN (15:30)
[2018-04-13] MEDS ORDERED: HYDROmorphone 2 MG/ML, 1ML IVPush PRN (15:30)
[2018-04-13] MEDS ORDERED: OXYcodone/APAP 5/325MG TABLET PO PRN (15:30)
== END 2018-04-13 16:10 | disposition home or self-care (01) ==
LOC: OUT 06:34
PROVIDERS: ATTEND Obstetrics & Gynecology Female Pelvic Medicine and Reconstructive Surgery
DX: D25.9 Leiomyoma of uterus, unspecified (principal); N94.6 Dysmenorrhea, unspecified; N94.10 Unspecified dyspareunia; N81.89 Other female genital prolapse; N39.46 Mixed incontinence; N88.8 Other specified noninflammatory disorders of cervix uteri; N32.81 Overactive bladder; E03.9 Hypothyroidism, unspecified; Z90.49 Acquired absence of other specified parts of digestive tract; Z98.890 Other specified postprocedural states
CPT/HCPCS: 57265; 57282; 57288; 58552; 81025; 88307; C1771; J0171; J0690; J1100; J1885; J2405; J2704; J2765; J3010; J3490; J7120

== ENCOUNTER 2018-04-24 14:24 | Emergency (ER) | payer MEDICAID ==
[~2018-04-24] VITALS: Ht 162.6 cm; Wt 80.0 kg
[2018-04-24] MEDS ORDERED: SODIUM CHLORIDE FLUSH 10ML SYR IVF ONE (15:00)
[2018-04-24] MEDS ORDERED: SODIUM CHLORIDE 0.9% 1,000ML IVBOLUS ONE (15:00)
[2018-04-24 15:10] LABS: BASOPHILS # (AUTO) 0.04 x10^3/uL (0-0.1); BASOPHILS % (AUTO) 1 % (0-1); EOSINOPHILS # (AUTO) 0.59 x10^3/uL (0-0.4); EOSINOPHILS % (AUTO) 9 % (1-7); LYMPHOCYTES # (AUTO) 1.78 x10^3/uL (1-3.4); LYMPHOCYTES % (AUTO) 26 % (22-44); MD NO; MEAN CORPUSCULAR HEMOGLOBIN 30.7 pg (27.0-34.8); MEAN CORPUSCULAR HGB CONC 32.9 g/dL (32.4-35.8); MEAN CORPUSCULAR VOLUME 93.4 fL (80-100); MEAN PLATELET VOLUME 6.8 fL (7.4-10.4); MONOCYTES # (AUTO) 0.56 x10^3/uL (0.2-0.8); MONOCYTES % (AUTO) 8 % (2-9); NEUTROPHILS # (AUTO) 3.83 x10^3/uL (1.8-6.8); NEUTROPHILS % (AUTO) 56 % (42-75); PLATELET COUNT 412 x10^3/uL (130-400); RED BLOOD COUNT 3.73 x10^6/uL (3.82-5.3); RED CELL DISTRIBUTION WIDTH 15.1 % (9.6-15.2)
[2018-04-24 15:13] LABS: ALBUMIN 3.7 g/dL (3.4-5.0); ANION GAP 5 mmol/L (5-15); CHLORIDE 113 mmol/L (98-107)
[2018-04-24 15:19] LABS: ALANINE AMINOTRANSFERASE 19 U/L (12-78); BILIRUBIN,TOTAL 1.1 mg/dL (0.2-1.0); TOTAL PROTEIN 7.7 g/dL (6.4-8.2); TROPONIN I < 0.015 ng/mL (0.000-0.045)
[2018-04-24 15:22] LABS: ALKALINE PHOSPHATASE 120 U/L (45-117)
[2018-04-24] MEDS ORDERED: OMNIPAQUE 350 MG/ML, 100ML BOTTLE ONE (16:06)
[2018-04-24 16:07] LABS: MICROSCOPIC INDICATED
[2018-04-24 16:17] LABS: CULTURE INDICATED? NO
[2018-04-24 16:55] VITALS: BP 106/61
== END 2018-04-24 16:58 | disposition home or self-care (01) ==
LOC: ED 14:39
DX: R55 Syncope and collapse (principal); R06.00 Dyspnea, unspecified; R05 Cough; E03.9 Hypothyroidism, unspecified; G43.909 Migraine, unspecified, not intractable, without status migrainosus; G40.909 Epilepsy, unspecified, not intractable, without status epilepticus; Z90.49 Acquired absence of other specified parts of digestive tract; Z98.51 Tubal ligation status
CPT/HCPCS: 36415; 71275; 80053; 81001; 83605; 84484; 85025; 93005; 99284; Q9967

== ENCOUNTER 2018-05-03 14:17 | Emergency (ER) | payer MEDICAID ==
[~2018-05-03] VITALS: Ht 172.7 cm; Wt 80.0 kg
--- NOTE | 2018-05-03 14:43 | NUR ---
connected to monitor.
[2018-05-03] MEDS ORDERED: SODIUM CHLORIDE 0.9% 1,000ML IVBOLUS ONE (15:00)
--- NOTE | 2018-05-03 15:00 | NUR ---
Pt OOB to bathroom, no assistance required. Pt states that she hadn't been able to urinate in 2 days and finally was able to, though she does still feel like she has urine in her bladder. Pt agrees with plan to straight cath for relief and urine sample.
--- NOTE | 2018-05-03 15:15 | NUR ---
PIV started, labs drawn. IVF started. Pt remains on all monitors.
[2018-05-03 15:51] LABS: BASOPHILS # (AUTO) 0.07 x10^3/uL (0-0.1); BASOPHILS % (AUTO) 1 % (0-1); EOSINOPHILS # (AUTO) 0.55 x10^3/uL (0-0.4); EOSINOPHILS % (AUTO) 10 % (1-7); LYMPHOCYTES # (AUTO) 2.14 x10^3/uL (1-3.4); LYMPHOCYTES % (AUTO) 37 % (22-44); MD NO; MEAN CORPUSCULAR HGB CONC 34.3 g/dL (32.4-35.8); MEAN CORPUSCULAR VOLUME 93.2 fL (80-100); MEAN PLATELET VOLUME 7.9 fL (7.4-10.4); MONOCYTES # (AUTO) 0.42 x10^3/uL (0.2-0.8); MONOCYTES % (AUTO) 7 % (2-9); NEUTROPHILS % (AUTO) 45 % (42-75); PLATELET COUNT 388 x10^3/uL (130-400); RED BLOOD COUNT 3.57 x10^6/uL (3.82-5.3); RED CELL DISTRIBUTION WIDTH 14.8 % (9.6-15.2)
[2018-05-03 16:00] LABS: INTERNATIONAL NORMALIZED RATIO 1.08 (0.93-1.1); PROTHROMBIN TIME 11.3 Seconds (9.6-11.5)
--- NOTE | 2018-05-03 16:00 | NUR ---
Straight cath performed for urine sample, 900mL urine out as well as sample. Pt tolerated procedure well. Urine sample walked to lab.
[2018-05-03 16:03] LABS: ALBUMIN 3.6 g/dL (3.4-5.0); ANION GAP 4 mmol/L (5-15); CALCIUM 8.4 mg/dL (8.5-10.1); CHLORIDE 110 mmol/L (98-107)
[2018-05-03 16:09] LABS: CREATININE 0.82 mg/dL (0.55-1.02); TROPONIN I < 0.015 ng/mL (0.000-0.045)
[2018-05-03 16:26] LABS: MICROSCOPIC NOT IND
[2018-05-03 16:33] LABS: CULTURE INDICATED? NO
--- NOTE | 2018-05-03 16:41 | NUR ---
Pt to imaging, with tech, via [place].
[2018-05-03] MEDS ORDERED: OMNIPAQUE 350 MG/ML, 100ML BOTTLE ONE (16:55)
--- NOTE | 2018-05-03 17:06 | NUR ---
Pt back to room from imaging.
--- NOTE | 2018-05-03 17:23 | NUR ---
Dr. [place] at bedside to update pt on ED findings and POC.
[2018-05-03 17:43] VITALS: BP 114/63
--- NOTE | 2018-05-03 17:44 | NUR ---
Patient/Caregiver given discharge instructions and they have confirmed that they understand the instructions. Patient ambulatory with steady gait.
== END 2018-05-03 17:45 | disposition home or self-care (01) ==
LOC: ED 15:21
DX: E86.0 Dehydration (principal); R10.30 Lower abdominal pain, unspecified; E03.9 Hypothyroidism, unspecified; Z90.49 Acquired absence of other specified parts of digestive tract
CPT/HCPCS: 36415; 71275; 74177; 80048; 81003; 82040; 84484; 85025; 85610; 93005; 96360; 96361; 99284; J7030; Q9967

== ENCOUNTER 2018-07-05 12:29 | Emergency (ER) | payer MEDICAID ==
[~2018-07-05] VITALS: Ht 167.6 cm; Wt 87.0 kg
--- NOTE | 2018-07-05 13:23 | NUR ---
PT TO ED FOR GENERALIZED WEAKNESS ADN DIZZINESS X2 DAYS. PT STATES MULTIPLE FALLS RECENTLY RELATED TO DIZZINESS. PT CONNECTED TO MONITORS. TACHY, 115, ALL OTHER VSS ON RA. EDMD PRESENT FOR ASSESSMENT. AWAITING ORDERS. NO NEESD. [facility].
[2018-07-05] MEDS ORDERED: SODIUM CHLORIDE 0.9% 1,000ML IVBOLUS ONE (13:30)
--- NOTE | 2018-07-05 13:50 | NUR ---
xr to grant.
[2018-07-05 13:53] LABS: BASOPHILS # (AUTO) 0.04 x10^3/uL (0-0.1); BASOPHILS % (AUTO) 1 % (0-1); EOSINOPHILS # (AUTO) 0.21 x10^3/uL (0-0.4); EOSINOPHILS % (AUTO) 3 % (1-7); LYMPHOCYTES # (AUTO) 1.63 x10^3/uL (1-3.4); LYMPHOCYTES % (AUTO) 23 % (22-44); MD NO; MEAN CORPUSCULAR HEMOGLOBIN 31.4 pg (27.0-34.8); MEAN CORPUSCULAR HGB CONC 33.4 g/dL (32.4-35.8); MEAN CORPUSCULAR VOLUME 94.2 fL (80-100); MEAN PLATELET VOLUME 7.5 fL (7.4-10.4); MONOCYTES # (AUTO) 0.41 x10^3/uL (0.2-0.8); MONOCYTES % (AUTO) 6 % (2-9); NEUTROPHILS # (AUTO) 4.88 x10^3/uL (1.8-6.8); NEUTROPHILS % (AUTO) 68 % (42-75); PLATELET COUNT 275 x10^3/uL (130-400); RED BLOOD COUNT 3.26 x10^6/uL (3.82-5.3)
[2018-07-05 13:58] LABS: ALANINE AMINOTRANSFERASE 37 U/L (12-78); ALBUMIN 3.2 g/dL (3.4-5.0); ANION GAP 11 mmol/L (5-15); CALCIUM 8.1 mg/dL (8.5-10.1); CHLORIDE 106 mmol/L (98-107); CREATININE 0.92 mg/dL (0.55-1.02)
[2018-07-05 14:03] LABS: ALKALINE PHOSPHATASE 126 U/L (45-117); BILIRUBIN,TOTAL 0.2 mg/dL (0.2-1.0); FREE T4 (FREE THYROXINE) 0.54 ng/dL (0.76-1.46); TOTAL PROTEIN 7.3 g/dL (6.4-8.2); TROPONIN I < 0.015 ng/mL (0.000-0.045)
--- NOTE | 2018-07-05 14:11 | NUR ---
REPORT FROM LIZETTE TO. PT RESTING IN [facility]. AWAKE/ALERT. NAD NOTED. PT OFF ALL MONITORING STATES "I'M REALLY ALLERGIC TO ADHESIVE, SO I TOOK THE MONITORS OFF". DESPITE EDUCATION, PT ELECTING TO REMAIN OFF CARDIAC MONITORING. SPO2 MONITORING IN PLACE. 16F DOLL PLACED W/ YELLOW URINE OUT. PT REPORTS IMMEDIATE RELIEF. UA COLLECTED AND SENT TO LAB.
--- NOTE | 2018-07-05 14:14 | NUR ---
PT REQUESTING MEDICATIONS FOR FISH. ERP AWARE. AWAITING ORDERS
[2018-07-05 14:31] LABS: MICROSCOPIC NOT IND
[2018-07-05 14:40] LABS: CULTURE INDICATED? NO
[2018-07-05] MEDS ORDERED: DIPHENHYDRAMINE 50 MG/ML, 1ML IVPush ONE ×2 (15:00→15:30)
[2018-07-05] MEDS ORDERED: DIPHENHYDRAMINE 25 MG CAPSULE PO ONE (15:00)
[2018-07-05] MEDS ORDERED: DIPHENHYDRAMINE 50 MG/ML, 1ML ONE (15:01)
[2018-07-05 15:06] VITALS: BP 100/66
--- NOTE | 2018-07-05 15:06 | NUR ---
PT MEDICATED PER EMAR FOR FISH
--- NOTE | 2018-07-05 15:37 | NUR ---
TO NURSES STATION REQUESTING DC. PT/SO MADE AWARE THAT CHART IS UP FOR RECHECK, ERP TO SEE PT TO DISCUSS DISPO. BOTH PT/SO DEMONSTRATE UNDERSTANDING.
--- NOTE | 2018-07-05 16:19 | NUR ---
PT ELECTING TO GO HOME WO CATH IN PLACE. PER ERP, ODLL REMOVED. NO DRAINAGE/BLEEDING NOTED AT CATH INSERTION SITE. PT REPORTS IMPROVEMENT IN FISH W/ MEDICATIONS. PT STANDING STEADILY AT BEDSIDE, DRESSING SELF. DENIES DIZZINESS/WEAKNESS. DC EDUCATION PROVIDED, PT DEMONSTRATES UNDERSTANDING. PT AMBULATED STEADILY TO DC WITH RN AND SO. SO TO TRANSPORT PT HOME.
== END 2018-07-05 16:22 | disposition home or self-care (01) ==
LOC: ED 13:22
DX: G43.019 Migraine without aura, intractable, without status migrainosus (principal); E87.6 Hypokalemia; R33.9 Retention of urine, unspecified; E03.9 Hypothyroidism, unspecified; Z90.49 Acquired absence of other specified parts of digestive tract; Z90.710 Acquired absence of both cervix and uterus
CPT/HCPCS: 36415; 71045; 80053; 80307; 81003; 83735; 83880; 84439; 84443; 84484; 85025; 85379; 93005; 96374; 99284; J1200; J7030

== ENCOUNTER 2018-07-14 11:53 | Emergency (ER) | payer MEDICAID ==
[~2018-07-14] VITALS: Ht 162.6 cm; Wt 65.0 kg
--- NOTE | 2018-07-14 12:02 | NUR ---
THIS IS A 43 Y/O FEMALE THAT WAS BIB EMS TO ED WITH INCREASED CP AND FEELING LIKE SHE IS SKIPPING A BEAT. PT REPORTS PAIN STARTED WHILE SHE WAS ON THE COUCH. PT DENIES ANY SOB, PALPATATIONS, DIAPHORESIS OR FATIGUE. PT DENIES CARDIAC HX, HOWEVER HAS A RECLAIMER AND NITRO AT HOME. PT CONNECTED TO ALL MONITORING EQUIPMENT, CALL LIGHT IN REACH, FALL EDUCATION PERFORMED. AWAITING FURTHER ORDERS.
[2018-07-14 12:36] LABS: BASOPHILS # (AUTO) 0.06 x10^3/uL (0-0.1); BASOPHILS % (AUTO) 1 % (0-1); EOSINOPHILS # (AUTO) 0.17 x10^3/uL (0-0.4); EOSINOPHILS % (AUTO) 4 % (1-7); LYMPHOCYTES # (AUTO) 1.55 x10^3/uL (1-3.4); LYMPHOCYTES % (AUTO) 34 % (22-44); MD NO; MEAN CORPUSCULAR HEMOGLOBIN 31.1 pg (27.0-34.8); MEAN CORPUSCULAR HGB CONC 33.2 g/dL (32.4-35.8); MEAN CORPUSCULAR VOLUME 93.9 fL (80-100); MONOCYTES # (AUTO) 0.36 x10^3/uL (0.2-0.8); MONOCYTES % (AUTO) 8 % (2-9); NEUTROPHILS % (AUTO) 53 % (42-75); PLATELET COUNT 374 x10^3/uL (130-400); RED BLOOD COUNT 4.19 x10^6/uL (3.82-5.3); RED CELL DISTRIBUTION WIDTH 15.9 % (9.6-15.2)
[2018-07-14 12:44] LABS: INTERNATIONAL NORMALIZED RATIO 1.11 (0.93-1.1); PROTHROMBIN TIME 11.6 Seconds (9.6-11.5)
[2018-07-14 12:47] LABS: ALBUMIN 4.5 g/dL (3.4-5.0); ANION GAP 8 mmol/L (5-15); CALCIUM 9.3 mg/dL (8.5-10.1); CHLORIDE 107 mmol/L (98-107); CREATININE 1.02 mg/dL (0.55-1.02)
[2018-07-14 12:50] LABS: TROPONIN I < 0.015 ng/mL (0.000-0.045)
--- NOTE | 2018-07-14 14:30 | NUR ---
AWAITING TROP FOR 3PM, PT DOES NOT WANT TO KEEP VITALS MONITOR ON SHE REPORTS ITS MAKING HER ITCHY, INFORMES WE WILL NEED TO RETAKE IT AGAIN IN 1 HOUR MIN.
[2018-07-14 15:26] LABS: TROPONIN I < 0.015 ng/mL (0.000-0.045)
--- NOTE | 2018-07-14 15:30 | NUR ---
NOTIFIED TROP BACK FOR RECHECK.
[2018-07-14 15:52] VITALS: BP 112/84
--- NOTE | 2018-07-14 15:52 | NUR ---
Patient/Caregiver given discharge instructions and they have confirmed that they understand the instructions. Patient ambulatory with steady gait.
== END 2018-07-14 16:05 | disposition home or self-care (01) ==
LOC: ED 15:55
DX: R07.89 Other chest pain (principal); Z90.49 Acquired absence of other specified parts of digestive tract; Z90.710 Acquired absence of both cervix and uterus; E03.9 Hypothyroidism, unspecified; G40.909 Epilepsy, unspecified, not intractable, without status epilepticus
CPT/HCPCS: 36415; 71045; 80048; 82040; 84484; 85025; 85610; 85730; 93005; 99284

== ENCOUNTER 2018-08-11 19:19 | Emergency (ER) | payer MEDICAID ==
[~2018-08-11] VITALS: Ht 170.2 cm; Wt 75.0 kg
[~2018-08-11 19:19] MED LIST changes: -FLUT16SP IH; +FLUT16SP24 IH
[2018-08-11] MEDS ORDERED: METOCLOPRAMIDE 5 MG/ML, 2ML IVPush ONE (19:30)
[2018-08-11] MEDS ORDERED: DIPHENHYDRAMINE 50 MG/ML, 1ML IVPush ONE (19:30)
[2018-08-11] MEDS ORDERED: KETOROLAC 30 MG/1 ML IVPush ONE (19:30)
[2018-08-11] MEDS ORDERED: LORazepam 2 MG/ML, 1ML IVPush PRN (19:30)
[2018-08-11] MEDS ORDERED: DIPHENHYDRAMINE 50 MG/ML, 1ML ONE (19:37)
[2018-08-11] MEDS ORDERED: METOCLOPRAMIDE 5 MG/ML, 2ML ONE (19:37)
[2018-08-11] MEDS ORDERED: KETOROLAC 30 MG/1 ML ONE (19:37)
[2018-08-11] MEDS ORDERED: DIVA250T4 PO (19:41)
[2018-08-11] MEDS ORDERED: HYDR10CA3 PO (19:43)
--- NOTE | 2018-08-11 19:44 | NUR ---
REPORT FROM LIZETTE LEHMAN. PT AMBULATED STEADILY TO ROOM WITH SPOUSE FROM BATHROOM. BP/SPO2/ECG MONITORING IN PLACE. NSR ON MONITOR. PT MEDICATED PER EMAR FOR FISH. LAB IN TO DRAW. PT NOW ALERT/AWAKE BUT DROWSY. NAD NOTED. SZ PRECAUTIONS IN PLACE. SO AT BEDSIDE.
[2018-08-11] MEDS ORDERED: LORazepam 2 MG/ML, 1ML ONE (19:55)
[2018-08-11 19:56] LABS: BASOPHILS # (AUTO) 0.02 x10^3/uL (0-0.1); BASOPHILS % (AUTO) 1 % (0-1); EOSINOPHILS # (AUTO) 0.13 x10^3/uL (0-0.4); EOSINOPHILS % (AUTO) 3 % (1-7); LYMPHOCYTES # (AUTO) 1.56 x10^3/uL (1-3.4); LYMPHOCYTES % (AUTO) 38 % (22-44); MD NO; MEAN CORPUSCULAR HEMOGLOBIN 31.5 pg (27.0-34.8); MEAN CORPUSCULAR HGB CONC 32.8 g/dL (32.4-35.8); MEAN CORPUSCULAR VOLUME 95.8 fL (80-100); MONOCYTES # (AUTO) 0.43 x10^3/uL (0.2-0.8); MONOCYTES % (AUTO) 10 % (2-9); NEUTROPHILS # (AUTO) 2.01 x10^3/uL (1.8-6.8); NEUTROPHILS % (AUTO) 48 % (42-75); PLATELET COUNT 229 x10^3/uL (130-400); RED BLOOD COUNT 4.08 x10^6/uL (3.82-5.3); RED CELL DISTRIBUTION WIDTH 16.2 % (9.6-15.2)
[2018-08-11 20:06] LABS: ANION GAP 5 mmol/L (5-15); CALCIUM 8.8 mg/dL (8.5-10.1); CHLORIDE 111 mmol/L (98-107); CREATININE 0.76 mg/dL (0.55-1.02)
--- NOTE | 2018-08-11 20:21 | NUR ---
PT REPORTS IMPROVEMENT IN FISH WITH MEDICATIONS. PT SLEEPY, ARROUSABLE TO VOICE. PT ANSWERS QUESTIONS APPROPRIATELY W/ CLEAR SPEECH. SPO2 >90% ON RA. RR WNL. CHART UP FOR RECHECK
[2018-08-11 21:15] VITALS: BP 112/70
--- NOTE | 2018-08-11 21:15 | NUR ---
PT REPORTS IMPROVEMENT IN FISH, 04/26 AND IS REQUESTING DC. NO SZ ACTIVITY WHILE IN ED. DC EDUCATION PROVIDED BY LIZETTE LEHMAN. PT AMBULATED STEADILY TO DC WITH SO. SO TO TRANSPORT PT HOME.
== END 2018-08-11 21:22 | disposition home or self-care (01) ==
LOC: ED 19:50
DX: R56.9 Unspecified convulsions (principal); G43.909 Migraine, unspecified, not intractable, without status migrainosus; E03.9 Hypothyroidism, unspecified; Z91.048 Other nonmedicinal substance allergy status
CPT/HCPCS: 36415; 80048; 82040; 84703; 85025; 93005; 96374; 96375; 99284; J1200; J1885; J2765

== ENCOUNTER 2019-01-03 13:23 | Emergency (ER) | payer MEDICAID ==
[~2019-01-03] VITALS: Ht 162.6 cm; Wt 79.2 kg
[~2019-01-03 13:23] MED LIST changes: +DIVA250T4 PO
[2019-01-03 13:40] VITALS: BP 103/61
[2019-01-03] MEDS ORDERED: OXYcodone/APAP 10/325MG TABLET PO ONE (14:00)
[2019-01-03] MEDS ORDERED: OXYcodone/APAP 5/325MG TABLET ONE (14:03)
[2019-01-03] MEDS ORDERED: OXYcodone/APAP 5/325MG TABLET PO ONE (14:30)
== END 2019-01-03 14:23 | disposition home or self-care (01) ==
LOC: ED 14:00
DX: K08.89 Other specified disorders of teeth and supporting structures (principal)
CPT/HCPCS: 64400; 99284

== ENCOUNTER 2019-09-15 12:44 | Emergency (ER) | payer MEDICAID ==
[~2019-09-15] VITALS: Ht 162.6 cm; Wt 81.4 kg
[~2019-09-15 12:44] MED LIST changes: +MECL-101 PO; -MECL25TA4 PO; +ONDA-89 PO; -ONDA4TAB12 PO; -OXYC15TA PO; +OXYC15TA3 PO; -TRAZ-137 PO; +TRAZ-175 PO
[2019-09-15 13:28] LABS: BASOPHILS # (AUTO) 0.03 x10^3/uL (0-0.1); BASOPHILS % (AUTO) 1 % (0-1); EOSINOPHILS # (AUTO) 0.21 x10^3/uL (0-0.4); EOSINOPHILS % (AUTO) 5 % (1-7); LYMPHOCYTES # (AUTO) 2.07 x10^3/uL (1-3.4); LYMPHOCYTES % (AUTO) 45 % (22-44); MD NO; MEAN CORPUSCULAR HEMOGLOBIN 33.8 pg (27.0-34.8); MEAN CORPUSCULAR VOLUME 99.4 fL (80-100); MEAN PLATELET VOLUME 7.7 fL (7.4-10.4); MONOCYTES # (AUTO) 0.36 x10^3/uL (0.2-0.8); MONOCYTES % (AUTO) 8 % (2-9); NEUTROPHILS # (AUTO) 1.92 x10^3/uL (1.8-6.8); NEUTROPHILS % (AUTO) 42 % (42-75); PLATELET COUNT 339 x10^3/uL (130-400); RED BLOOD COUNT 3.59 x10^6/uL (3.82-5.3); RED CELL DISTRIBUTION WIDTH 13.4 % (9.6-15.2)
[2019-09-15 13:37] LABS: ALBUMIN 3.1 g/dL (3.4-5.0); ANION GAP 6 mmol/L (5-15); CHLORIDE 106 mmol/L (98-107); CREATININE 0.87 mg/dL (0.55-1.02)
[2019-09-15 13:42] LABS: FREE T4 (FREE THYROXINE) 1.04 ng/dL (0.76-1.46); TROPONIN I < 0.015 ng/mL (0.000-0.045)
--- NOTE | 2019-09-15 14:22 | NUR ---
POLYMERIZATION OVEN TENDER: PT WALKED BACK FROM LOBBY TO ROOM AT THIS TIME.
[2019-09-15] MEDS ORDERED: KETOROLAC 30 MG/1 ML ONE (15:37)
[2019-09-15] MEDS ORDERED: KETOROLAC 30 MG/1 ML IM ONE (16:00)
[2019-09-15] MEDS ORDERED: METOCLOPRAMIDE 5 MG/ML, 2ML ONE (16:16)
[2019-09-15] MEDS ORDERED: DIPHENHYDRAMINE 50 MG/ML, 1ML ONE (16:16)
[2019-09-15] MEDS ORDERED: METOCLOPRAMIDE 5 MG/ML, 2ML IVPush ONE (16:30)
[2019-09-15] MEDS ORDERED: DIPHENHYDRAMINE 50 MG/ML, 1ML IVPush ONE (16:30)
[2019-09-15 17:08] VITALS: BP 132/74
== END 2019-09-15 17:14 | disposition home or self-care (01) ==
LOC: ED 16:22
DX: R13.12 Dysphagia, oropharyngeal phase (principal); G43.909 Migraine, unspecified, not intractable, without status migrainosus; R07.9 Chest pain, unspecified; E03.9 Hypothyroidism, unspecified; I10 Essential (primary) hypertension; Z90.49 Acquired absence of other specified parts of digestive tract; Z90.710 Acquired absence of both cervix and uterus; Z98.51 Tubal ligation status
CPT/HCPCS: 36415; 71045; 74220; 80048; 82040; 83880; 84439; 84443; 84484; 85025; 93005; 96372; 96374; 96375; 99285; J1200; J1885; J2765

== ENCOUNTER 2019-09-28 13:30 | Emergency (ER) | payer MEDICAID ==
[~2019-09-28] VITALS: Ht 167.6 cm; Wt 79.9 kg
[2019-09-28 15:15] VITALS: BP 109/77
--- NOTE | 2019-09-28 15:18 | NUR ---
THIS IS A 44 YO F W/ C/O COUGH AND SORE THROAT. PT IS RESTING ON [employer] W/ CALL LIGHT IN REACH AND SIDE RAILS UPX2. RESP EVEN AND UNLABORED, MEME, ANTONIO.
--- NOTE | 2019-09-28 15:19 | NUR ---
LAB IN ROOM.
[2019-09-28 15:26] LABS: BASOPHILS # (AUTO) 0.04 x10^3/uL (0-0.1); BASOPHILS % (AUTO) 1 % (0-1); EOSINOPHILS # (AUTO) 0.22 x10^3/uL (0-0.4); EOSINOPHILS % (AUTO) 4 % (1-7); LYMPHOCYTES # (AUTO) 2.05 x10^3/uL (1-3.4); LYMPHOCYTES % (AUTO) 40 % (22-44); MD NO; MEAN CORPUSCULAR HEMOGLOBIN 33.5 pg (27.0-34.8); MEAN CORPUSCULAR VOLUME 98.7 fL (80-100); MEAN PLATELET VOLUME 8.1 fL (7.4-10.4); MONOCYTES # (AUTO) 0.44 x10^3/uL (0.2-0.8); MONOCYTES % (AUTO) 9 % (2-9); NEUTROPHILS # (AUTO) 2.38 x10^3/uL (1.8-6.8); NEUTROPHILS % (AUTO) 46 % (42-75); PLATELET COUNT 283 x10^3/uL (130-400); RED BLOOD COUNT 3.85 x10^6/uL (3.82-5.3)
[2019-09-28 15:35] LABS: ALANINE AMINOTRANSFERASE 12 U/L (12-78); ALBUMIN 3.5 g/dL (3.4-5.0); ANION GAP 5 mmol/L (5-15); C-REACTIVE PROTEIN, QUANT 0.39 mg/dL (0.02-0.49); CALCIUM 8.2 mg/dL (8.5-10.1); CHLORIDE 108 mmol/L (98-107); CREATININE 0.83 mg/dL (0.55-1.02)
[2019-09-28 15:37] LABS: ALKALINE PHOSPHATASE 85 U/L (45-117); BILIRUBIN,TOTAL 0.4 mg/dL (0.2-1.0); TOTAL PROTEIN 7.7 g/dL (6.4-8.2)
[2019-09-28] MEDS ORDERED: CEFDINIR 300 MG CAPSULE PO ONE (16:00)
[2019-09-28] MEDS ORDERED: AZITHROMYCIN 250 MG TABLET ONE ×2 (16:21→16:22)
[2019-09-28] MEDS ORDERED: CEFDINIR 300 MG CAPSULE ONE (16:21)
--- NOTE | 2019-09-28 16:38 | NUR ---
DC RN ONLY:Patient/Caregiver given discharge instructions and they have confirmed that they understand the instructions. Patient ambulatory with steady gait.
[2019-09-29] MEDS ORDERED: AZITHROMYCIN 500 MG TABLET PO SCH (09:00)
== END 2019-09-28 16:40 | disposition home or self-care (01) ==
LOC: ED 14:14
DX: J18.0 Bronchopneumonia, unspecified organism (principal); Z20.828 Contact with and (suspected) exposure to other viral communicable diseases; R06.00 Dyspnea, unspecified; R50.9 Fever, unspecified; R05 Cough; R00.0 Tachycardia, unspecified; E03.9 Hypothyroidism, unspecified; I10 Essential (primary) hypertension; I95.9 Hypotension, unspecified; G40.909 Epilepsy, unspecified, not intractable, without status epilepticus; Z98.51 Tubal ligation status; Z90.49 Acquired absence of other specified parts of digestive tract; Z90.710 Acquired absence of both cervix and uterus
CPT/HCPCS: 36415; 71045; 80053; 83615; 84145; 85025; 86140; 87635; 93005; 99285

== ENCOUNTER 2020-01-16 14:47 | Emergency (ER) | payer MEDICAID ==
[~2020-01-16] VITALS: Ht 162.6 cm; Wt 80.0 kg
[~2020-01-16 14:47] MED LIST changes: -OXYC-432 PO; +OXYC1TAB18 PO
--- NOTE | 2020-01-16 15:18 | NUR ---
PT STATED SHE TAKES DEPAKOTE FOR SZs, STATED SHE IS CURRENT ON THAT MED.
--- NOTE | 2020-01-16 15:18 | NUR ---
PT IN HOSPITAL GOWN. PT PLACED ON CARDIAC AND VITALS MONITOR. EKG DONE DUE TO PT HAVING ELEVATED HR. PT ABLE TO ANSWER ALL QUESTIONS APPROPRIATELY. SEIZURE PADS PLACED ON BED. WILL CONTINUE TO MONITOR.
[2020-01-16 16:23] LABS: BASOPHILS % (AUTO) 1 % (0-1); EOSINOPHILS % (AUTO) 2 % (1-7); LYMPHOCYTES % (AUTO) 27 % (22-44); MEAN CORPUSCULAR HEMOGLOBIN 35.1 pg (27.0-34.8); MEAN CORPUSCULAR HGB CONC 34.9 g/dL (32.4-35.8); MEAN PLATELET VOLUME 7.7 fL (7.4-10.4); MONOCYTES % (AUTO) 8 % (2-9); NEUTROPHILS % (AUTO) 63 % (42-75); PLATELET COUNT 314 x10^3/uL (130-400); RED BLOOD COUNT 3.59 x10^6/uL (3.82-5.3)
[2020-01-16 16:24] LABS: MD NO
[2020-01-16 16:30] VITALS: BP 113/77
[2020-01-16 16:36] LABS: ALBUMIN 3.2 g/dL (3.4-5.0); ANION GAP 3 mmol/L (5-15); CALCIUM 8.3 mg/dL (8.5-10.1); CHLORIDE 110 mmol/L (98-107)
[2020-01-16 16:39] LABS: ALKALINE PHOSPHATASE 75 U/L (45-117); BILIRUBIN,TOTAL 0.3 mg/dL (0.2-1.0); CREATININE 0.84 mg/dL (0.55-1.02); TOTAL PROTEIN 7.3 g/dL (6.4-8.2)
--- NOTE | 2020-01-16 16:42 | NUR ---
PT VSS, SEE CHARTED. PT STATED SHE HAD A SEIZURE A LITTLE BIT AGO AND TENSED UP. STATED NOW HAVING PAIN THROUGHOUT BODY. WILL INFORM DOCTOR.
[2020-01-16 16:47] LABS: ALANINE AMINOTRANSFERASE 26 U/L (12-78)
--- NOTE | 2020-01-16 17:02 | NUR ---
PT FOUND ON FLOOR, STATED HE JUST WALKED IN AND PT WAS ON FLOOR. DESPITE SEIZURE INTACT ON BILAT BEDRAILS. PT HAD APPARENTLY SEIZED ALL THE WAY DOWN TO END OF BED, AND WAS FOUND BY BOTTOM, SIDE OF BED. NO INJURY SEEN, PT PLACED BACK IN BED. PT IV WAS PULLED OUT DURING EPISODE. ERP AWARE. WILL CONTINUE TO MONITOR.
--- NOTE | 2020-01-16 17:13 | NUR ---
AT BEDSIDE. PT BLOOD SUGAR 68. PT ASKING TO USE BATHROOM. THIS RN WAS GETTING BEDPAN READY. PT STATED SHE WOULD RATHER WALK TO BATHROOM AND CAN HELP. PT INFORMED THAT AFTER HER SEIZURE IT IS SAFER FOR HER TO USE A BEDPAN, BECUASE IF SHE SEIZES IN HALLWAY, IT WILL BE DIFFICULT TO GET HER TO BACK TO ROOM AND SHE COULD INCUR SERIOUS INJURY. PT STATED SHE WOULD RATHER WAIT TO USE RESTROOM. SEIZURE PADS REMAIN INTACT ON BILAT BEDRAILS. WILL CONTINUE TO MONITOR.
[2020-01-16] MEDS ORDERED: DIVALPROEX 500 MG TAB.ER.24H PO ONE (17:44)
[2020-01-16] MEDS ORDERED: DIVALPROEX 500 MG TAB.ER.24H ONE (18:15)
== END 2020-01-16 18:26 | disposition home or self-care (01) ==
LOC: ED 15:10
DX: R56.9 Unspecified convulsions (principal); R79.1 Abnormal coagulation profile; R00.0 Tachycardia, unspecified; E03.9 Hypothyroidism, unspecified; G43.909 Migraine, unspecified, not intractable, without status migrainosus; I10 Essential (primary) hypertension
CPT/HCPCS: 36415; 80053; 80164; 82962; 84703; 85025; 93005; 99284

== ENCOUNTER 2020-03-06 17:30 | Emergency (ER) | payer MEDICAID ==
[~2020-03-06] VITALS: Ht 162.6 cm; Wt 84.0 kg
[2020-03-06 17:58] LABS: MEAN CORPUSCULAR HEMOGLOBIN 34.4 pg (27.0-34.8); MEAN CORPUSCULAR HGB CONC 33.9 g/dL (32.4-35.8); MEAN PLATELET VOLUME 8.2 fL (7.4-10.4); PLATELET COUNT 240 x10^3/uL (130-400); RED BLOOD COUNT 3.59 x10^6/uL (3.82-5.3); RED CELL DISTRIBUTION WIDTH 13.5 % (9.6-15.2)
[2020-03-06 18:09] LABS: ALANINE AMINOTRANSFERASE 16 U/L (12-78); ALBUMIN 3.7 g/dL (3.4-5.0); CALCIUM 8.4 mg/dL (8.5-10.1); CREATININE 0.85 mg/dL (0.55-1.02)
[2020-03-06 18:12] LABS: ALKALINE PHOSPHATASE 74 U/L (45-117); BILIRUBIN,TOTAL 0.3 mg/dL (0.2-1.0); TOTAL PROTEIN 7.4 g/dL (6.4-8.2)
[2020-03-06 18:22] LABS: MD YES
[2020-03-06 18:23] LABS: ANION GAP 8 mmol/L (5-15); CHLORIDE 110 mmol/L (98-107)
[2020-03-06 18:55] LABS: BASOS#(MANUAL) 0.05 x10^3/uL (0-0.1); BASOS% (MANUAL) 1 % (0-1); EOS#(MANUAL) 0.29 x10^3/uL (0.0-0.4); EOS% (MANUAL) 6 % (1-7); LYMPH#(MANUAL) 1.91 x10^3/uL (1-3.4); LYMPHS% (MANUAL) 39 % (22-44); MONOS#(MANUAL) 0.34 x10^3/uL (0.3-2.7); MONOS% (MANUAL) 7 % (2-9); REACTIVE LYMPHS # (MANUAL) 0.25 x10^3/uL (0-0); REACTIVE LYMPHS % (MANUAL) 5 % (0-0); SEG#(MANUAL) 2.06 x10^3/uL (1.8-6.8); SEGS% (MANUAL) 42 % (42-75)
[2020-03-06 18:57] LABS: <PLATELET ESTIMATE> ADEQUATE; <PLT MORPHOLOGY> NORMAL PLT MORPH
[2020-03-06 19:40] LABS: MICROSCOPIC NOT IND
--- NOTE | 2020-03-06 19:57 | NUR ---
ASSESSMENT MADE. CHART UP FOR MD TO RECHECK. ALL LABS RESULTED.
--- NOTE | 2020-03-06 20:46 | NUR ---
REPORT RECIEVED FROM JUDY BAUER
--- NOTE | 2020-03-06 20:46 | NUR ---
report to LIZETTE Hogan
[2020-03-06] MEDS ORDERED: ONDANSETRON 2MG/ML, 2ML IVPush ONE (21:00)
[2020-03-06] MEDS ORDERED: MORPHINE SULFATE 4 MG/ML, 1ML ONE ×2 (21:09→22:36)
[2020-03-06] MEDS ORDERED: ONDANSETRON 2MG/ML, 2ML ONE (21:09)
[2020-03-06] MEDS: MORPHINE SULFATE 4 MG/ML, 1ML IVPush PRN ×2 (21:20→22:39)
--- NOTE | 2020-03-06 21:42 | NUR ---
PIV STARTED FOR CT AND MEDS, PT IN CT NOW
[2020-03-06] MEDS ORDERED: OMNIPAQUE 350 MG/ML, 100ML BOTTLE ONE (21:46)
[2020-03-06] MEDS ORDERED: KETOROLAC 30 MG/1 ML IVPush ONE (22:30)
[2020-03-06] MEDS ORDERED: KETOROLAC 30 MG/1 ML ONE (22:36)
[2020-03-06 22:43] VITALS: BP 117/84
== END 2020-03-06 23:01 | disposition home or self-care (01) ==
LOC: ED 21:30
DX: N83.11 Corpus luteum cyst of right ovary (principal); R10.31 Right lower quadrant pain; R35.0 Frequency of micturition; R11.0 Nausea; Z90.49 Acquired absence of other specified parts of digestive tract; Z90.710 Acquired absence of both cervix and uterus
CPT/HCPCS: 36415; 74177; 80053; 81003; 83690; 85025; 96374; 96375; 96376; 99285; J1885; J2270; J2405; Q9967

== ENCOUNTER 2020-03-07 17:44 | Emergency (ER) | payer MEDICAID ==
[~2020-03-07] VITALS: Ht 167.6 cm; Wt 79.5 kg
[2020-03-07] MEDS ORDERED: ONDANSETRON 2MG/ML, 2ML ONE (18:20)
[2020-03-07] MEDS ORDERED: MORPHINE SULFATE 4 MG/ML, 1ML ONE ×2 (18:20→18:35)
[2020-03-07] MEDS: MORPHINE SULFATE 4 MG/ML, 1ML IVPush PRN ×2 (18:21→18:37)
[2020-03-07 18:26] LABS: MEAN CORPUSCULAR HEMOGLOBIN 34.9 pg (27.0-34.8); MEAN CORPUSCULAR HGB CONC 34.4 g/dL (32.4-35.8); PLATELET COUNT 213 x10^3/uL (130-400); RED BLOOD COUNT 3.37 x10^6/uL (3.82-5.3); RED CELL DISTRIBUTION WIDTH 13.7 % (9.6-15.2)
[2020-03-07 18:28] LABS: ALBUMIN 3.5 g/dL (3.4-5.0); ANION GAP 4 mmol/L (5-15); CALCIUM 7.8 mg/dL (8.5-10.1); CHLORIDE 110 mmol/L (98-107); CREATININE 0.83 mg/dL (0.55-1.02)
[2020-03-07] MEDS ORDERED: ONDANSETRON 2MG/ML, 2ML IVPush ONE (18:30)
--- NOTE | 2020-03-07 18:30 | NUR ---
SO STATES PT IS IN A LOT OF PAIN. HE HAS NEVER SEEN HER LIKE THIS. MEDICATED PER MAR. PROVIDER UPDATED. PT IS NEXT UP FOR US.
[2020-03-07 19:15] LABS: MD YES
--- NOTE | 2020-03-07 19:20 | NUR ---
TALKED WITH US TECH. STATES WAITING FOR NEXT TO COME IN TO COMPLETE EXAM.
[2020-03-07 19:21] LABS: LYMPH#(MANUAL) 2.39 x10^3/uL (1-3.4); LYMPHS% (MANUAL) 52 % (22-44); MONOS#(MANUAL) 0.23 x10^3/uL (0.3-2.7); MONOS% (MANUAL) 5 % (2-9); REACTIVE LYMPHS # (MANUAL) 0.14 x10^3/uL (0-0); REACTIVE LYMPHS % (MANUAL) 3 % (0-0); SEG#(MANUAL) 1.84 x10^3/uL (1.8-6.8); SEGS% (MANUAL) 40 % (42-75)
[2020-03-07 19:22] LABS: <PLATELET ESTIMATE> ADEQUATE; <PLT MORPHOLOGY> NORMAL PLT MORPH
--- NOTE | 2020-03-07 19:50 | NUR ---
PROVIDER UPDATED ON PT'S PAIN. PT IN POSITION. 11/26 PAIN.
[2020-03-07] MEDS ORDERED: KETOROLAC 30 MG/1 ML ONE (20:30)
[2020-03-07] MEDS ORDERED: KETOROLAC 30 MG/1 ML IVPush ONE (20:30)
[2020-03-07 20:50] VITALS: BP 120/76
--- NOTE | 2020-03-07 20:52 | NUR ---
Straight cathed pt.- about 600mL dark yellow urine output. Pt reports relief after empyting bladder.
== END 2020-03-07 22:39 | disposition home or self-care (01) ==
LOC: ED 18:16
DX: R10.2 Pelvic and perineal pain (principal); R10.31 Right lower quadrant pain; I10 Essential (primary) hypertension; R11.2 Nausea with vomiting, unspecified; E03.9 Hypothyroidism, unspecified
CPT/HCPCS: 36415; 76830; 80048; 82040; 85025; 96374; 96375; 99284; J1885; J2270; J2405

== ENCOUNTER 2020-03-23 06:09 | Emergency (ER) | payer MEDICAID ==
[~2020-03-23] VITALS: Ht 162.6 cm; Wt 80.0 kg
[~2020-03-23 06:09] MED LIST changes: -OXYC-307 PO; +OXYC-380 PO
[2020-03-23 06:10] VITALS: BP 123/82
--- NOTE | 2020-03-23 06:30 | NUR ---
BLADDER SCAN SHOWS APPROX 700ML URINE PRESENT
--- NOTE | 2020-03-23 06:53 | NUR ---
STRAIGHT CATH PER ERP ORDER. PT TOLERATED WELL. 700ML DRAINED. PT REPORTS DECREASED PAIN.
--- NOTE | 2020-03-23 07:03 | NUR ---
BEDSIDE REPORT TO RAHUL BAUER
[2020-03-23 07:13] LABS: BASOPHILS % (AUTO) 1 % (0-1); EOSINOPHILS % (AUTO) 2 % (1-7); LYMPHOCYTES % (AUTO) 13 % (22-44); MEAN CORPUSCULAR HEMOGLOBIN 35.2 pg (27.0-34.8); MEAN CORPUSCULAR HGB CONC 34.3 g/dL (32.4-35.8); MEAN PLATELET VOLUME 8.1 fL (7.4-10.4); MONOCYTES % (AUTO) 5 % (2-9); NEUTROPHILS % (AUTO) 79 % (42-75); PLATELET COUNT 231 x10^3/uL (130-400); RED BLOOD COUNT 3.39 x10^6/uL (3.82-5.3); RED CELL DISTRIBUTION WIDTH 13.4 % (9.6-15.2)
[2020-03-23 07:14] LABS: MD NO
[2020-03-23 07:17] LABS: ALBUMIN 3.5 g/dL (3.4-5.0); ANION GAP 5 mmol/L (5-15); CALCIUM 8.6 mg/dL (8.5-10.1); CHLORIDE 112 mmol/L (98-107); CREATININE 0.81 mg/dL (0.55-1.02)
[2020-03-23 07:21] LABS: MICROSCOPIC NOT IND
--- NOTE | 2020-03-23 08:18 | NUR ---
PT REC'VD DISCHARGE INSTRUCTIONS AND EDUCATION. PT HAD NO FURTHER QUESTIONS. PT AND SPOUSE AMBULATED TO THE DC AREA, STEADY GAIT.
== END 2020-03-23 08:21 | disposition home or self-care (01) ==
LOC: ED 06:58
DX: R33.9 Retention of urine, unspecified (principal); R10.9 Unspecified abdominal pain; I10 Essential (primary) hypertension; E03.9 Hypothyroidism, unspecified; I48.91 Unspecified atrial fibrillation; G43.909 Migraine, unspecified, not intractable, without status migrainosus; Z90.710 Acquired absence of both cervix and uterus
CPT/HCPCS: 36415; 51701; 80048; 81003; 82040; 85025; 99283; P9612

== ENCOUNTER 2020-03-26 16:40 | Emergency (ER) | payer MEDICAID ==
[~2020-03-26] VITALS: Ht 162.6 cm; Wt 81.1 kg
[2020-03-26 18:09] LABS: ANION GAP 6 mmol/L (5-15); CALCIUM 8.1 mg/dL (8.5-10.1); CHLORIDE 108 mmol/L (98-107); CREATININE 0.79 mg/dL (0.55-1.02)
--- NOTE | 2020-03-26 18:19 | NUR ---
notified of pt c/o FISH and request for meds. States CT first to ensure Toradol is safe for admin prior to ordering medication. Lights turned off in room with some help per pt and repositioned to position of comfort. Call light in reach and pt's cellphone returned to her from the floor where she states she dropped it earlier.
[2020-03-26] MEDS ORDERED: LORazepam 2 MG/ML, 1ML ONE ×2 (18:34→18:48)
--- NOTE | 2020-03-26 18:35 | NUR ---
TP RN: PTS SPOUSE WANDERING TOUSSAINT, WHEN ASKED IF HE NEEDED ASSISTANCE HE CASUALLY STATED "MY IS HAVING A SEIZURE". THIS RN CHECKED ON PT AND CALLED PRIMARY RN FOR ASSISTANCE, ERP NOTIFIED AND AT BEDSIDE.
--- NOTE | 2020-03-26 18:42 | NUR ---
Pt moving in bed, able to be redirected off siderails, stiff motions of body without tonic-clonic activity noted. Pt not verbally responding to MD questions while he is at bedside but moves with verbal directions. Ativan to be held as sz has broken at this time. MD states he will order meds for migraine. remains at bedside and is aware of plan.
--- NOTE | 2020-03-26 18:45 | NUR ---
Report given to LIZETTE Aguilera and care transferred.
--- NOTE | 2020-03-26 18:49 | NUR ---
TP RN: PTS SPOUSE WALKED TO NURSES STATION AND STATED THAT PT WAS SEIZING. PRIMARY RN NOTIFIED AND WENT TO BEDSIDE. TO BEDSIDE. 1MG ATIVAN GIVEN PER PROVIDER ORDER. 1MG ATIVAN WASTED Kathleen/ PAULA BAUER.
--- NOTE | 2020-03-26 18:50 | NUR ---
Pt having abnormal seizure-like activity without true tonic-clonic movement, and noted as mostly tonic with almost purposeful directional movement within the bed and able to be redirected to avoid causing harm to body against railings. Sz pad in place as well, and arm held easily in position for Ativan admin once verbalized ready for behavioral medical director after difficulty in straightening arm just prior to that. MD brought back to bedside to witness activity himself. Pt relaxed after behavioral medical director, repositioned in bed and noted SpO2 remained 100% on RA throughout event and afterwards. Night RN introduced to and aware of waiting for CT and meds ordered currently.
[2020-03-26] MEDS ORDERED: DIPHENHYDRAMINE 50 MG/ML, 1ML ONE (18:58)
[2020-03-26] MEDS ORDERED: METOCLOPRAMIDE 5 MG/ML, 2ML ONE (18:58)
[2020-03-26] MEDS ORDERED: DIPHENHYDRAMINE 50 MG/ML, 1ML IVPush ONE (19:00)
[2020-03-26] MEDS ORDERED: LORazepam 2 MG/ML, 1ML IVPush PRN (19:00)
[2020-03-26] MEDS ORDERED: METOCLOPRAMIDE 5 MG/ML, 2ML IVPush ONE (19:00)
--- NOTE | 2020-03-26 19:20 | NUR ---
on arrival, and in the middle of RN handoff, RN's called to room by passing by RN that patient was having seizure. patient was noticeably grasping for R side rail and but had back against L side rail and intermittent jerking movements and eyes fixed on . multiple staff members to bedside to keep patient from hitting head; seizure pads already in place. Dr. Ovalle to bedside as well. 1mg IV ativan pushed by assisting RN and patient stopped seizure seconds before IV ativan pushed. When I re-entered room to administer other ordered medications, patient A&Ox4, although she stated it was 2020, but was rumagging through purse and making voluntary steady and clear movements. was conversing with with clear speech. call winn in reach. safety maintained. states coal gasification technician in to tell patient that she was next to go to CT
[2020-03-26] MEDS ORDERED: KETOROLAC 30 MG/1 ML ONE (20:24)
[2020-03-26] MEDS ORDERED: LEVETIRACETAM 1,000 MG in SODIUM CHLORIDE 0.9% 100 ML IV ONE (20:30)
[2020-03-26] MEDS ORDERED: KETOROLAC 30 MG/1 ML IVPush ONE (20:30)
--- NOTE | 2020-03-26 20:30 | NUR ---
patient resting in bed in NAD. VS remain stable. call winn in reach. safety maintained. seizure precuations continued. at bedside
--- NOTE | 2020-03-26 21:45 | NUR ---
call winn in reach. at bedside and asking if CT's have resulted yet. Dr. Ovalle notified of requests. safety maintained. will continue to monitor.
--- NOTE | 2020-03-26 22:37 | NUR ---
discharge instructions reviewed with patient and patient's at bedside. VS remain stable on RA. no further seizure activity. prescription handed directly to patient. no further questions at this time. all personal belongings with patient on dc. IV removed per dc protocol. steady slow gait to lobby with
[2020-03-26 22:38] VITALS: BP 97/52
== END 2020-03-26 22:42 | disposition home or self-care (01) ==
LOC: ED 18:07
DX: G40.309 Generalized idiopathic epilepsy and epileptic syndromes, not intractable, without status epilepticus (principal); R00.0 Tachycardia, unspecified; G43.909 Migraine, unspecified, not intractable, without status migrainosus; I10 Essential (primary) hypertension; I48.91 Unspecified atrial fibrillation; Z90.49 Acquired absence of other specified parts of digestive tract; Z90.710 Acquired absence of both cervix and uterus
CPT/HCPCS: 36415; 70450; 72125; 80048; 80164; 93005; 96374; 96375; 99285; J1200; J1885; J1953; J2060; J2765

== ENCOUNTER 2020-04-25 07:10 | Emergency (ER) | payer MEDICAID ==
[~2020-04-25] VITALS: Ht 162.6 cm; Wt 83.1 kg
--- NOTE | 2020-04-25 07:30 | NUR ---
PT C/O MULTIPLE SEIZURES LAST NIGHT. PT HAS A HX OF SEIZURES AND TOOK HER KEPRA AND DEPAKOTE THIS AM. PT STATES HER BODY HURTS ALL OVER AND SHE FEELS TIRED, BUT NO OBVIOUS TRAUMA TO PT. PT ALSO C/O HEADACHE. PT HAS AN APPT AT THE END OF THIS MONTH WITH A NEW NEUROLOGIST. BED RAILS UP, SEIZURE PADS IN PLACE, AND BELONGINGS AND CALL LIGHT IN REACH.
[2020-04-25] MEDS ORDERED: METOCLOPRAMIDE 5 MG/ML, 2ML IVPush ONE (08:00)
[2020-04-25] MEDS ORDERED: KETOROLAC 30 MG/1 ML IVPush ONE (08:00)
[2020-04-25] MEDS ORDERED: DIPHENHYDRAMINE 50 MG/ML, 1ML IVPush ONE (08:00)
[2020-04-25] MEDS ORDERED: DIPHENHYDRAMINE 50 MG/ML, 1ML ONE (08:01)
[2020-04-25] MEDS ORDERED: METOCLOPRAMIDE 5 MG/ML, 2ML ONE (08:02)
[2020-04-25] MEDS ORDERED: KETOROLAC 30 MG/1 ML ONE (08:02)
[2020-04-25 08:08] LABS: BASOPHILS % (AUTO) 1 % (0-1); EOSINOPHILS % (AUTO) 3 % (1-7); LYMPHOCYTES % (AUTO) 47 % (22-44); MEAN CORPUSCULAR HEMOGLOBIN 34.9 pg (27.0-34.8); MEAN CORPUSCULAR HGB CONC 34.7 g/dL (32.4-35.8); MEAN PLATELET VOLUME 7.7 fL (7.4-10.4); MONOCYTES % (AUTO) 10 % (2-9); NEUTROPHILS % (AUTO) 39 % (42-75); PLATELET COUNT 257 x10^3/uL (130-400); RED BLOOD COUNT 3.92 x10^6/uL (3.82-5.3); RED CELL DISTRIBUTION WIDTH 12.3 % (9.6-15.2)
[2020-04-25 08:09] LABS: MD NO
[2020-04-25 08:14] LABS: ALBUMIN 3.6 g/dL (3.4-5.0); ANION GAP 8 mmol/L (5-15); CALCIUM 8.8 mg/dL (8.5-10.1); CHLORIDE 106 mmol/L (98-107)
[2020-04-25] MEDS ORDERED: SODIUM CHLORIDE 0.9% 1,000ML IVBOLUS ONE (08:30)
[2020-04-25 09:52] VITALS: BP 94/49
== END 2020-04-25 09:54 | disposition home or self-care (01) ==
LOC: ED 07:36
DX: R56.9 Unspecified convulsions (principal); I10 Essential (primary) hypertension; R55 Syncope and collapse; E03.9 Hypothyroidism, unspecified; G43.909 Migraine, unspecified, not intractable, without status migrainosus; Z98.51 Tubal ligation status; Z90.710 Acquired absence of both cervix and uterus
CPT/HCPCS: 36415; 80048; 80164; 82040; 85025; 93005; 96374; 96375; 99285; J1200; J1885; J2765; J7030

== ENCOUNTER 2020-04-29 14:34 | Emergency (ER) | payer MEDICAID ==
[~2020-04-29] VITALS: Ht 162.6 cm; Wt 82.0 kg
--- NOTE | 2020-04-29 14:55 | NUR ---
TASK RN: BROUGHT TO BEDSIDE TO EVAL PT. SEIZURE PRECATIONS IN PLACE. ANTONIO VALENTINE.
--- NOTE | 2020-04-29 14:58 | NUR ---
REPORT TAKEN FROM TASK RN BRISSA. PT NOTES THAT SHE MAY HAVE ACCIDENTALLY TAKEN TOO MANY NITRO FOR CHEST PAIN NOTED TODAY. ON INITIAL CONTACT, PT STATES SHE HAS 6/10 CHEST PAIN. EMS WAS CALLED PT WAS REPORTEDLY UNRESPONSIVE AT HOME TODAY, PER , PT HAD NOT HAD A SEIZURE TODAY. PT DROWSY, BUT ANSWERING QUESTIONS ON ARRIVAL. RESPS EVEN AND UNLABORED. PT DENIES SI, OR OTHER INTENT TO HARM SELF. AFTER THIS RN HAD INITIAL CONTACT WITH PT, THIS RN LEFT ROOM. CALLED RN IN STATING "SHE'S HAVING A SEIZURE" . THIS RN RESPONDED IMMEDIATELY, PT NOTED TO HAVE GENERALIZED TREMOR, UNRESPONSIVE TO VERBAL COMMANDS, GRIPPING SIDE RAILS AND POSTURING. THIS LASTED APPROX 1 MIN, [facility], PART OF EPISODE VISUALIZED BY MD. VERBAL ORDER RECEIVED FOR IV ATIVAN 1MG. AFTER EPISODE, PT AWOKE, IS DROWSY BUT FOLLOWS COMMANDS AND ANSWERS QUESTIONS APPROPRIATELY. NO INJURY SUSTAINED, NO ORAL TRAUMA NOTICED. SEIZURE PRECAUTIONS PLACED.
[2020-04-29] MEDS ORDERED: LORazepam 2 MG/ML, 1ML ONE (15:03)
[2020-04-29] MEDS ORDERED: SODIUM CHLORIDE FLUSH 10ML SYR IVF ONE (15:30)
[2020-04-29] MEDS ORDERED: LORazepam 2 MG/ML, 1ML IVPush ONE (15:30)
[2020-04-29] MEDS ORDERED: KETOROLAC 30 MG/1 ML IVPush ONE (15:30)
[2020-04-29] MEDS ORDERED: DIPHENHYDRAMINE 50 MG/ML, 1ML IVPush ONE (15:30)
[2020-04-29] MEDS ORDERED: SODIUM CHLORIDE 0.9% 1,000ML IVBOLUS ONE (15:30)
--- NOTE | 2020-04-29 15:35 | NUR ---
[facility]10 STERNAL CHEST PAIN RADIATING TO LEFT SHOULDER, WELL BILATERAL NECK PAIN. PT STATES SHE DOES BELIEVE SHE FELL TODAY. MD ORDERED TORADOL AND BENADRYL, NO ADDITIONAL ORDERS RECEIVED.
[2020-04-29] MEDS ORDERED: KETOROLAC 30 MG/1 ML ONE (15:48)
[2020-04-29 16:00] LABS: BASOPHILS % (AUTO) 1 % (0-1); EOSINOPHILS % (AUTO) 2 % (1-7); LYMPHOCYTES % (AUTO) 33 % (22-44); MEAN CORPUSCULAR HEMOGLOBIN 34.6 pg (27.0-34.8); MEAN PLATELET VOLUME 7.9 fL (7.4-10.4); MONOCYTES % (AUTO) 7 % (2-9); NEUTROPHILS % (AUTO) 57 % (42-75); PLATELET COUNT 261 x10^3/uL (130-400); RED BLOOD COUNT 3.83 x10^6/uL (3.82-5.3); RED CELL DISTRIBUTION WIDTH 12.6 % (9.6-15.2)
--- NOTE | 2020-04-29 16:00 | NUR ---
LATE ENTRY D/T PATIENT CARE: PT ASSISTED TO VOID USING BSC, URINE SENT TO LAB. PT ASSISTED BACK TO BED, GAIT STEADY. PT IS A&O, RESPS EVEN AND UNLABORED. SPEECH CLEAR. NADN. NSR ON TRAFFIC RATE COMPUTER WITH NO ECTOPY NOTED. SEIZURE PRECAUTIONS REMAIN, ALL MONITORS REMAIN. AT BEDSIDE.
[2020-04-29 16:06] LABS: ALANINE AMINOTRANSFERASE 14 U/L (12-78); ALBUMIN 3.6 g/dL (3.4-5.0); ANION GAP 8 mmol/L (5-15); CALCIUM 8.5 mg/dL (8.5-10.1); CHLORIDE 110 mmol/L (98-107); CREATININE 0.85 mg/dL (0.55-1.02)
[2020-04-29 16:09] LABS: ALKALINE PHOSPHATASE 68 U/L (45-117); BILIRUBIN,TOTAL 0.3 mg/dL (0.2-1.0); MD NO; TOTAL PROTEIN 7.8 g/dL (6.4-8.2)
[2020-04-29 16:10] LABS: SALICYLATE LEVEL < 1.7 mg/dL (2.8-20.0)
[2020-04-29 16:43] LABS: AMPHETAMINE SCREEN, URINE Negative (Negative); BARBITURATE SCREEN, URINE Negative (Negative); BENZODIAZEPINE SCREEN, URINE Positive (Negative); CANNABINOID SCREEN, URINE Negative (Negative); COCAINE SCREEN, URINE Negative (Negative); METHADONE SCREEN, URINE Negative (Negative); OPIATE SCREEN, URINE Negative (Negative)
[2020-04-29 18:03] VITALS: BP 108/74
--- NOTE | 2020-04-29 18:28 | NUR ---
DC ORDERS RECEIVED, PT GIVEN DC INSTRUCTIONS WITH INSTRUCTIONS TO FOLLOW UP WITH PRIMARY CARE PROVIDER. PT IS A&O, RESPS EVEN AND UNLABORED. NO SEIZURE ACTIVITY NOTED. NO COMPLAINT AT DC. NO N/V AT DC. PT AMBULATORY WITH STEADY GAIT, UNASSISTED. ESCORTED TO DC IN WHEELCHAIR. PT INSTRUCTED NOT TO DRIVE TODAY, STATES IS DRIVING HOME. PIV DC'D WITH TIP INTACT. ALL QUESTIONS ANSWERED.
== END 2020-04-29 18:27 | disposition home or self-care (01) ==
LOC: ED 15:15
DX: G40.409 Other generalized epilepsy and epileptic syndromes, not intractable, without status epilepticus (principal); G43.019 Migraine without aura, intractable, without status migrainosus; R07.9 Chest pain, unspecified; R94.31 Abnormal electrocardiogram [ECG] [EKG]; I10 Essential (primary) hypertension; E03.9 Hypothyroidism, unspecified; I48.91 Unspecified atrial fibrillation; Z90.49 Acquired absence of other specified parts of digestive tract; Z90.710 Acquired absence of both cervix and uterus; Z98.51 Tubal ligation status
CPT/HCPCS: 36415; 71045; 80053; 80156; 80177; 80299; 80307; 80320; 80329; 83735; 85025; 93005; 96361; 96374; 96375; 99285; J1885; J2060; J7030; G0480